=== PATIENT | male | born 1960 | race Caucasian/White ===

== ENCOUNTER 2018-05-07 17:18 | Inpatient (IN) | payer OTHER ==
[2018-05-07] MEDS ORDERED: NS 0.9% 1000 ML* 3,000 ML IV ONE (17:44)
[2018-05-07] MEDS ORDERED: Morphine VIAL* 4 MG/ML VIAL (1 ml vial) IV ONE (17:46)
--- NOTE | 2018-05-07 17:46 | ED ---
Abdominal Pain/Male - HPI Summary HPI Summary: Patient is a 58 y/o M w/ c/o right sided abdominal pain for the past few days. On triage, it is noted that patient also reported SOB. PMHx of diabetes, HTN. Patient is on insulin but has not been taking it for the past few weeks and has only been drinking juice. 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 He denies N/V/D and chest pain. He endorses decreased appetite. On triage, pain is rated 3/10. Nothing is noted to aggravate/alleviate Sx. Home medications and allergies are reviewed. - History of Current Complaint Chief Complaint: EDAbdPain Stated Complaint: ABD PAIN Time Seen by Provider: 05/07/18 17:37 Hx Obtained From: Patient Onset/Duration: Lasting Days, Still Present Timing: Constant, Lasting Days Severity Currently: Mild - 3/10 Pain Intensity: 3 Pain Scale Used: 0-10 Numeric - 3/10 Location: Other - right side abdominal pain Aggravating Factor(s): Nothing Alleviating Factor(s): Nothing Associated Signs And Symptoms: Positive: Decreased Appetite, Other - POSITIVE - SOB. Negative: Chest Pain, Nausea, Vomiting, Diarrhea - Allergies/Home Medications Allergies/Adverse Reactions: Allergies Allergy/AdvReac Type Severity Reaction Status Date / Time No Known Allergies Allergy Verified 05/07/18 18:02 Home Medications: Home Medications Basaglar Kwikpen U-100 10 units SUBCUT DAILY 05/08/18 [History Confirmed ] Furosemide TAB* [Lasix TAB*] 20 mg PO DAILY 05/08/18 [History Confirmed 05/08/18 ] Levothyroxine TAB* [Synthroid TAB*] 125 mcg PO DAILY 05/08/18 [History Confirmed 05/08/18] Sitagliptin Phosphate [Januvia] 100 mg PO DAILY 05/08/18 [History Confirmed ] glipiZIDE TAB* [Glucotrol TAB*] 10 mg PO DAILY 05/08/18 [History Confirmed 05/08] metFORMIN* [Glucophage 1000 MG TAB *] 1,000 mg PO BID 05/08/18 [History Confirmed 05/08/18] PMH/Surg Hx/FS Hx/Imm Hx Endocrine/Hematology History: Reports: Hx Diabetes Cardiovascular History: Reports: Hx Hypertension Sensory History: Denies: Hx Legally Blind, Hx Deafness Opthamlomology History: Denies: Hx Legally Blind EENT History: Denies: Hx Deafness Infectious Disease History: No Infectious Disease History: Denies: Traveled Outside the [place] in Last 30 Days - Family History Known Family History: Negative: Blood Disorder Review of Systems Negative: Chest Pain Positive: Shortness Of Breath Positive: Abdominal Pain, Other - POSITIVE - DECREASED APPETITE . Negative: Vomiting, Diarrhea, Nausea All Other Systems Reviewed And Are Negative: Yes Physical Exam - Summary Physical Exam Summary: Appearance: Well-appearing, Well-nourished, lying in bed comfortably Skin: Warm, dry, no obvious rash Eyes: sclera anicteric, no conjunctival pallor ENT: mucous membranes dry, pharynx appears normal Neck: Supple, nontender Respiratory: Clear to auscultation, patient is tachypneic Cardiovascular: Normal S1, S2. No murmurs. Normal distal pulses in tibial and radial bilaterally. Abdomen: Soft, RUQ tenderness with rebound and guarding, normal active bowel sounds present Musculoskeletal: Normal, Strength/ROM Intact Neurological: A&Ox3, awake and alert, mentation is normal, speech is fluent and appropriate Psychiatric: affect is normal, does not appear anxious or depressed Triage Information Reviewed: Yes Vital Signs On Initial Exam: Initial Vitals Temp Pulse Resp BP Pulse Ox 98.3 F 128 22 146/95 95 05/07/18 17:20 05/07/18 17:20 05/07/18 17:20 05/07/18 17:20 05/07/18 17:20 Vital Signs Reviewed: Yes Diagnostics - Vital Signs Vital Signs Temp Pulse Resp BP Pulse Ox 05/07/18 17:20 98.3 F 128 22 146/95 95 - Laboratory Result Diagrams: 05/08/18 06:48 05/08/18 06:48 Lab Statement: Any lab studies that have been ordered have been reviewed, and results considered in the medical decision making process. - Radiology CXR Radiology Interpretation Completed By: ED Physician - NO ACUTE DISEASE. PENDING OFFICIAL REPORT. - Ultrasound No standard instances Ultrasound Interpretation Completed By: Radiologist - GALLBLADDER US: 1. The gallbladder is thick walled measuring approximately 4.5 mm. There is a positive sonographic Conner's sign. There is pericholecystic fluid. Findings may be seen with infectious or inflammatory process. Recommend clinical correlation. There are no gallstones or sludge noted within the gallbladder. 2. There is a large cyst noted within the right kidney measuring approximately 11.9 x 11.0 x 8.3 CM. 3. There is fatty infiltration of an enlarged liver measuring 25 CM. ED PHYSICIAN REVIEWED THIS RADIOLOGY REPORT. - EKG 1723 Cardiac Rate: Tachycardia - 127 BPM EKG Rhythm: Sinus Rhythm - 127 BPM Summary of EKG Findings: negative STEMI Abdominal Pain Fem Course/Dx - Course Course Of Treatment: Patient is a 58 y/o M w/ c/o right sided abdominal pain for the past few days. On triage, it is noted that patient also reported SOB. PMHx of diabetes, HTN. Patient is on insulin but has not been taking it for the past few weeks and has only been drinking juice. 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 He denies N/V/ D and chest pain. He endorses decreased appetite. On physical exam, patient is noted to have dry mucous membranes, tachypneic, and RUQ tenderness with rebound and guarding. A CXR revealed to be no acute disease. A US gallbladder revealed 1. The gallbladder is thick walled measuring approximately 4.5 mm. There is a positive sonographic Conner's sign. There is pericholecystic fluid. Findings may be seen with infectious or inflammatory process. Recommend clinical correlation. There are no gallstones or sludge noted within the gallbladder. 2. There is a large cyst noted within the right kidney measuring approximately 11.9 x 11.0 x 8.3 CM. 3. There is fatty infiltration of an enlarged liver measuring 25 CM. An EKG revealed sinus tachycardia at 127 BPM, negative STEMI. blood work and urinalysis was done. In the ED course, the patient recieved Tylenol, Maalox, Ventolin, Dextrose, Colace, Heparin, Lantus, Humalog, Dulera, Morphine, Zofran, Zosyn, Senokot, Humalog, Lantus, and IV fluids. Patient care was discussed with hospitalist, Dr. Valdes, who accepts patient for admission. Patient will be admitted with a diagnosis of cholecystitis. Patient is agreeable with this plan. - Diagnoses Provider Diagnoses: Cholecystitis - Provider Notifications Discussed Care Of Patient With: Sánchez Ward Time Discussed With Above Provider: 22:57 Instructed by Provider To: Other - Will consult with patient. Recommends admission via hospitalist. [facility] - Accepts patient for admission. Discharge - Sign-Out/Discharge Documenting (check all that apply): Patient Departure - ADMIT, Sign-Out Patient - ROOTH Signing out patient TO: Armando Moser Receiving patient FROM: Luis Childers - Discharge Plan Condition: Stable Disposition: ADMITTED TO [facility] - Billing Disposition and Condition Condition: STABLE Disposition: Admitted to [facility] - Attestation Statements Document Initiated by Ankur: Yes Documenting Scribe: Alex Montgomery Provider For Whom Ankur is Documenting (Include Credential): Armando Moser M.D. Scribyanet Attestation: John Crowe Tariq Hussain, scribed for Armando Moser M.D. on 05/08/18 at 2010. Scribe Documentation Reviewed: Yes Provider Attestation: The documentation as recorded by the John koo Tariq Hussain accurately reflects the service I personally performed and the decisions made by Armando bird M.D. Status of Ankur Document: Viewed
[2018-05-07 19:08] LABS: Hematocrit 47 % (42-52); Hemoglobin 16.5 g/dl (14.0-18.0); Mean Corpuscular HGB Conc 35 g/dl (31-36); Mean Corpuscular Hemoglobin 32 pg (27-31); Mean Corpuscular Volume 90 fL (80-94); Mean Platelet Volume 8.4 fL (7.4-10.4); Platelet Count 211 10^3/ul (150-450); Red Blood Count 5.25 10^6/ul (4.00-5.40); Red Cell Distribution Width 13 % (10.5-15); White Blood Count 21.4 10^3/ul (3.5-10.8)
[2018-05-07 19:11] LABS: Urine Appearance Clear; Urine Blood 1+ (Negative); Urine Color Yellow; Urine Ketones Trace (Negative); Urine Protein 1+(30 mg/dL) (Negative); Urine Red Blood Cell Trace(0-2/hpf) (Absent); Urine Urobilinogen Negative (Negative); Urine White Blood Cell Absent (Absent)
[2018-05-07 19:25] LABS: EGFR Non-African American 101.9 (>60)
[2018-05-07 19:31] LABS: ABS Basophils 0.1 10^3/ul (0-0.2); ABS Eosinophils 0 10^3/ul (0-0.6); ABS Lymphocytes 1.1 10^3/ul (1.0-4.8); ABS Monocytes 1.8 10^3/ul (0-0.8); ABS Neutrophils 18.4 10^3/ul (1.5-7.7); ABS Nucleated RBC 0 10^3/ul; Eosinophil % 0.1 %; Lymphocyte % 5.2 %; Nucleated Red Blood Cells % 0.1
[2018-05-07] MEDS ORDERED: Piperacillin/Tazobac ADVAN(*) 3.375 GM in NS 0.9% 100 ML* 100 ML IVPB ONE (22:48)
[2018-05-07] MEDS ORDERED: NS 0.9% 1000 ML* 2,000 ML IV ONE (22:48)
[2018-05-07] MEDS ORDERED: Docusate CAP* 100 MG PO PRN (23:31)
[2018-05-07] MEDS ORDERED: Insulin LISPRO* 1 UNITS UNIT SUBCUT ONE (23:31)
[2018-05-07] MEDS ORDERED: Morphine VIAL* 4 MG/ML VIAL (1 ml vial) IV PRN (23:31)
[2018-05-07] MEDS ORDERED: Ondansetron INJ* 2 MG/ML VIAL IV PRN (23:31)
[2018-05-07] MEDS ORDERED: Dextrose 50% Syringe 50 ML* 25 GM/50 ML SYRINGE IV PUSH PRN ×3 (23:31→23:35)
[2018-05-07] MEDS ORDERED: Senna TAB PO PRN (23:31)
[2018-05-07] MEDS ORDERED: Al Hydrox/Mg Hydrox/Simet LIQ* 30 ML UDC PO PRN (23:31)
[2018-05-07] MEDS ORDERED: Insulin GLARGINE(*) 1 UNITS UNIT SUBCUT ONE (23:34)
[2018-05-07] MEDS ORDERED: Albuterol HFA INHALER* 8 gm MDI INH PRN (23:36)
[2018-05-07] MEDS ORDERED: Zosyn per Pharmacy* NOTE FOLLOW UP SCH (23:45)
[2018-05-08] MEDS: NS 0.9% 1000 ML* 1,000 ML IV SCH (01:35)
[2018-05-08] MEDS: ZOSYN 3.375 GM Q8H per EXTENDED INFUSION IVPB SCH ×6 (02:35→21:21)
[2018-05-08] MEDS: Heparin VIAL(*) 5000 UNITS/ML VIAL (FIVE THOUSAND) SUBCUT SCH ×2 (04:54→15:01)
[2018-05-08] MEDS: Mometasone/Formoter 200/5 MDI INH SCH ×3 (05:40→20:13)
[2018-05-08 07:24] LABS: ABS Basophils 0.1 10^3/ul (0-0.2); ABS Eosinophils 0.1 10^3/ul (0-0.6); ABS Lymphocytes 1.2 10^3/ul (1.0-4.8); ABS Monocytes 1.2 10^3/ul (0-0.8); ABS Neutrophils 14.2 10^3/ul (1.5-7.7); ABS Nucleated RBC 0 10^3/ul; Eosinophil % 0.6 %; Hematocrit 41 % (42-52); Hemoglobin 14.3 g/dl (14.0-18.0); Mean Corpuscular HGB Conc 35 g/dl (31-36); Mean Corpuscular Hemoglobin 32 pg (27-31); Mean Corpuscular Volume 91 fL (80-94); Mean Platelet Volume 8.3 fL (7.4-10.4); Nucleated Red Blood Cells % 0; Platelet Count 206 10^3/ul (150-450); Red Blood Count 4.53 10^6/ul (4.00-5.40); Red Cell Distribution Width 14 % (10.5-15); White Blood Count 16.8 10^3/ul (3.5-10.8)
[2018-05-08 07:41] LABS: EGFR Non-African American 121.4 (>60)
[2018-05-08] MEDS: Insulin LISPRO* 1 UNITS UNIT SUBCUT SCH ×6 (08:25→17:41)
--- NOTE | 2018-05-08 08:37 | HP ---
CC: Aurea Ricketts MD HISTORY AND PHYSICAL: DATE OF ADMISSION: 05/07/18 TIME OF EVALUATION: 2300. PRIMARY CARE PHYSICIAN: Aurea Ricketts MD CHIEF COMPLAINT: Abdominal pain. HISTORY OF PRESENT ILLNESS: This is a 58-year-old male with past medical history of diabetes, who pr esents to the emergency room with 2 days of right-sided abdominal pain. He denied any nausea or vomi ting. He states he has not been able to eat or drink anything over the past 24 hours. No diarrhea, no constipation. He is also complaining of shortness of breath. He has a chronic cough from his [employer], is not any worse. He denies any chest pain. No changes in weight, no lower extremity swelling. According to the ER, they stated he stopped using his insulin, he does not know why. When he spoke w arnold me, he states he has been compliant with his insulin. In the emergency room, the patient had lab s and imaging, he was found to have findings consistent with acute cholecystitis. Dr. Ward was co ntacted. He recommended the hospitalist to evaluate the patient and he would consult. PAST MEDICAL HISTORY: 1. Diabetes. 2. Hypertension. 3. COPD. MEDICATIONS: We will need to get med rec, the patient is not sure. He states he takes 2 inhalers. He states he takes insulin 20 mg subcu b.i.d. Otherwise, remaining medications are unknown. ALLERGIES: No known drug allergies. FAMILY HISTORY: Reviewed and noncontributory. SOCIAL HISTORY: The patient states he lives in a boarding house with 2 other housemaids. His girlfr iend, Amaris Gallagher, is his healthcare proxy. He denies any alcohol, tobacco, or illicit drug use. Kerri holt works at a [employer]. Code status is full code. REVIEW OF SYSTEMS: A 14-point review of systems as mentioned in the HPI; otherwise, negative. PHYSICAL EXAMINATION GENERAL: No acute distress, mildly ill appearing, resting comfortably. VITAL SIGNS: Temp 98.3, pulse rate 111, respiratory rate 18, oxygen saturation 95% on 3 L, blood pre ssure 114/78. HEENT: Head normocephalic. Pupils are equal and reactive. His right eye is injected. Conjunctivae are injected. Oropharynx: Mucous membranes dry. NECK: Supple. No lymphadenopathy. RESPIRATORY: Diminished breath sounds. Prolonged inspiratory phase. No wheezes, rhonchi, or rales. No increased work of breathing. CARDIAC: Tachycardic. Soft systolic murmur heard throughout. ABDOMEN: Positive bowel sounds. Tenderness in the right upper quadrant with some guarding. Abdomen is soft. EXTREMITIES: Trace pretibial edema. NEUROLOGIC: Alert and oriented x3. No gross focal neurologic deficits. DIAGNOSTIC STUDIES/LAB DATA: White count 21.4, hemoglobin , hematocrit 47, platelets 211. Sod ium 131, potassium 3.7, chloride 101, bicarb 23, BUN 11, creatinine 0.78, glucose 356. Total bili is 3. UA shows trace ketones, squamous cells present, +3 glucose. Radiographic Data: The gallbladder is thick walled, measuring approximately 4.5 mm. There is positi ve sonographic Conner' sign. There is pericholecystic fluid. Findings may be seen with infectious or inflammatory process. Recommend clinical correlation. There are no gallstones or sludge noted with in the gallbladder. There is a large cyst noted within the right kidney measuring approximately 11 x 9 x 11 x 8.3 cm. There is fatty infiltration of an enlarged liver measuring 25 cm. EKG shows sinus tachycardia. ASSESSMENT AND PLAN: This is a 58-year-old male with past medical history of diabetes, who presents to the emergency room with 2 days of right upper quadrant pain. 1. Right upper quadrant pain. Assessment: The patient's findings are consistent with acute cholecy stitis. Dr. Ward was contacted, he recommended hospitalist admission. Plan: We will check a [place]. We will continue him on aggressive IV fluids and continue him on Zosyn. We will obtain blood cultures as well and follow up with Dr. Ward. We will keep him n.p.o. 2. Shortness of breath. Assessment: Most likely related to his sepsis and possibility of his chron ic obstructive pulmonary disease. Plan: We will check a chest x-ray. We will start him on albutero l and Dulera for now until we get his med rec. If his shortness of breath continues, recommend furth er workup. 3. Diabetes. Assessment: The patient is hyperglycemic, but no anion gap acidosis. Plan: We will give him lispro this evening, start him on Lantus and follow up on the med rec, continue IV fluids, p lace him on lispro sliding scale, and check a hemoglobin A1c. 4. Chronic obstructive pulmonary disease. As mentioned, inhalers and follow up what he takes at [facility]. CHRONIC MEDICAL PROBLEMS: 1. We will need to get a med rec and order his medications accordingly. 2. Abnormal imaging findings. The patient with a large renal cyst noted, this will need to be follo wed as an outpatient. 3. FEN. N.p.o. IV fluids. 4. DVT prophylaxis. The patient scores moderate risk. Place him on heparin subcu t.i.d. 5. Code status. Full code. PATIENT TIME: Greater than 50 minutes was spent doing the history and physical, more than half the t kushal spent in direct patient contact. [id number]/[facility] #: [id number]
--- NOTE | 2018-05-08 12:58 | PN ---
Subjective Date of Service: 05/08/18 Interval History: Mr. Pinzon is anxious to meet with the surgeon. His is in the room as well. He continues to have pain in the RUQ. No nausea. He has been NPO. Afebrile. No other symptoms. He is actually looking forward to eating post- op. Objective Active Medications: Acetaminophen (Tylenol Tab*) 650 mg PO Q4H PRN PRN Reason: FEVER/PAIN Al Hydrox/Mg Hydrox/Simethicone (Maalox Plus*) 30 ml PO Q6H PRN PRN Reason: INDIGESTION Albuterol (Ventolin Hfa Inhaler*) 2 puff INH Q4H PRN PRN Reason: SOB/WHEEZING Dextrose (D50w Syringe 50 Ml*) 12.5 gm IV PUSH .FOR FS < 60 - SS PRN PRN Reason: FS < 60 Docusate Sodium (Colace Cap*) 100 mg PO BID PRN PRN Reason: CONSTIPATION Heparin Sodium (Porcine) (Heparin Vial(*)) 5,000 units SUBCUT Q8HR [facility] Last Admin: 05/08/18 04:54 Dose: Not Given Sodium Chloride (Ns 0.9% 1000 Ml*) 1,000 mls @ 125 mls/hr IV PER RATE [facility] Last Admin: 05/08/18 01:35 Dose: 125 mls/hr Piperacillin Sod/Tazobactam (Sod 3.375 gm/ Sodium Chloride) 100 mls @ 25 mls/ hr IVPB Q8H [facility] Last Admin: 05/08/18 11:05 Dose: 25 mls/hr Insulin Glargine (Lantus(*)) 20 units SUBCUT Q24H [facility] Insulin Human Lispro (Humalog*) 0 units SUBCUT AC [facility]; Protocol Last Admin: 05/08/18 12:23 Dose: Not Given Insulin Human Lispro (Humalog*) 0 units SUBCUT AC [facility]; Protocol Last Admin: 05/08/18 12:40 Dose: 6 units Mometasone Furoate/Formoterol Fumar (Dulera 200/5 Mdi*) 2 puff INH BID [facility] Last Admin: 05/08/18 07:54 Dose: 2 puff Morphine Sulfate (Morphine Vial*) 2 mg IV Q4H PRN PRN Reason: PAIN - MILD Last Admin: 05/08/18 01:35 Dose: 2 mg Ondansetron HCl (Zofran Inj*) 4 mg IV Q4H PRN PRN Reason: NAUSEA/VOMITING Pharmacy Consult (Zosyn Per Pharmacy*) 1 note FOLLOW UP .ZOSYN PER PHARMACY FAM Senevita (Senokot Tab*) 1 tab PO BID PRN PRN Reason: CONSTIPATION Vital Signs - 8 hr 05/08/18 05/08/18 05/08/18 07:22 08:00 11:51 Temperature 97.9 F 98.2 F Pulse Rate 93 96 Respiratory 22 22 20 Rate Blood Pressure 127/79 130/80 (mmHg) O2 Sat by Pulse 96 93 Oximetry Oxygen Devices in Use Now: None Appearance: alert, nontoxic, resting in bed Eyes: No Scleral Icterus Ears/Nose/Mouth/Throat: NL Teeth, Lips, Gums Neck: NL Appearance and Movements; NL JVP Respiratory: Symmetrical Chest Expansion and Respiratory Effort, Clear to Auscultation Cardiovascular: NL Sounds; No Murmurs; No JVD, RRR Abdominal: - - +magallon's sign. nontender elsewhere. Lymphatic: No Cervical Adenopathy Extremities: No Edema Skin: No Rash or Ulcers Neurological: Alert and Oriented x 3 Result Diagrams: 05/08/18 06:48 05/08/18 06:48 Assess/Plan/Problems-Billing Assessment: This is a 58 year old man with history of diabetes who presented with RUQ pain and was found to have acute cholecystitis. - Patient Problems (1) Acute cholecystitis Current Visit: Yes Status: Acute Code(s): K81.0 - ACUTE CHOLECYSTITIS SNOMED Code(s): 43826193 Comment: currently on pip/tazo, but needs cholecystectomy case discussed with surgery, who will evaluate him shivani currently hemodynamically stable and euvolemic (2) Diabetes mellitus Current Visit: Yes Status: Acute Code(s): E11.9 - TYPE 2 DIABETES MELLITUS WITHOUT COMPLICATIONS SNOMED Code(s): 58463026 Comment: poorly controlled; he and his admit he takes his insulin inconsistently (3) HTN (hypertension) Current Visit: Yes Status: Acute Code(s): I10 - ESSENTIAL (PRIMARY) HYPERTENSION SNOMED Code(s): 86388403 Comment: he also admits he takes his antihypertensives sporadically
--- NOTE | 2018-05-08 15:05 | CONSULT ---
Consult Consult: CC: RUQ abd pain HPI: Mr. Pinzon is an obese, 58 yo M with HTN, DM, and COPD who developed RUQ abd pain 2 days ago at 6 am. He felt well the night before and slept fine. He has no prior h/o similar pain. He denies N/V but did not feel he could eat and so was only drinking for a day. He denies F/C, jaundice, tea-colored urine or change in stools. He called in sick to work due to the pain and as it continued to worsen he presented to [place] [facility] [place]. In the ED he was noted to have WBC=21.4 and glucose= 356. He reports he hadn't taken diabetes medication for 2 weeks. Upon evaluation by ED staff he was noted to have tenderness in the RUQ and an US demonstrated findings of GB wall thickening and pericholecystic fluid with gallstones and positive sonographic Conner sign. Given the poorly controlled diabetes, he has been admitted to the Hospitalist service and is now under better control. He continues to c/o pain. He has been NPO. PMH: HTN, DM, COPD, obesity PSH: denies Meds: Active Medications Generic Name Dose Route Start Last Admin Trade Name Freq PRN Reason Stop Dose Admin Acetaminophen 650 mg 05/07/18 23:31 Tylenol Tab* PO Q4H PRN FEVER/PAIN Al Hydrox/Mg Hydrox/Simethicone 30 ml 05/07/18 23:31 Maalox Plus* PO Q6H PRN INDIGESTION Albuterol 2 puff 05/07/18 23:36 Ventolin Hfa Inhaler* INH Q4H PRN SOB/WHEEZING Dextrose 12.5 gm 05/07/18 23:31 D50w Syringe 50 Ml* IV PUSH .FOR FS < 60 - SS PRN FS < 60 Docusate Sodium 100 mg 05/07/18 23:31 Colace Cap* PO BID PRN CONSTIPATION Heparin Sodium (Porcine) 5,000 units 05/08/18 06:00 05/08/18 04:54 Heparin Vial(*) SUBCUT Not Given Q8HR FAM Sodium Chloride 1,000 mls @ 125 mls/hr 05/07/18 23:45 05/08/18 01:35 Ns 0.9% 1000 Ml* IV 125 mls/hr PER RATE FAM Administration Piperacillin Sod/Tazobactam 100 mls @ 25 mls/hr 05/08/18 03:00 05/08/18 11:05 Sod 3.375 gm/ Sodium Chloride IVPB 25 mls/hr Q8H FAM Administration Insulin Glargine 20 units 05/08/18 21:00 Lantus(*) SUBCUT Q24H FAM Insulin Human Lispro 0 units 05/08/18 07:30 05/08/18 12:23 Humalog* SUBCUT Not Given AC PENDING SALE TO [facility] Protocol Insulin Human Lispro 0 units 05/08/18 07:30 05/08/18 12:40 Humalog* SUBCUT 6 units AC PENDING S[facility] TO [facility] Administration Protocol Mometasone Furoate/Formoterol Fumar 2 puff 05/07/18 23:45 05/08/18 07:54 Dulera 200/5 Mdi* INH 2 puff BID FAM Administration Morphine Sulfate 2 mg 05/07/18 23:31 05/08/18 01:35 Morphine Vial* IV 2 mg Q4H PRN Administration PAIN - MILD Ondansetron HCl 4 mg 05/07/18 23:31 Zofran Inj* IV Q4H PRN NAUSEA/VOMITING Pharmacy Consult 1 note 05/07/18 23:45 Zosyn Per Pharmacy* FOLLOW UP .ZOSYN PER PHARMACY FAM Senna 1 tab 05/07/18 23:31 Senokot Tab* PO BID PRN CONSTIPATION NKDA SH: single; no tobacco or EtOH reported; 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 FH: non-contributory PE: Vital Signs Temp 98.2 F 05/08/18 11:51 Pulse 96 05/08/18 11:51 Resp 20 05/08/18 11:51 BP 130/80 05/08/18 11:51 Pulse Ox 93 05/08/18 11:51 Gen: Obese, lying in bed, awake/alert. HEENT: NCAT; edentulous; no otorhinorrhea; anicteric sclera. Lungs: CTA B Heart: reg s1s2 Abd: obese, no scars; soft with RUQ tenderness and +Conner sx. Ext: warm, well perfused. Intake & Output 05/07/18 05/08/18 05/08/18 18:59 06:59 18:59 Intake Total 5645 0 Balance 5645 0 Weight 300 lb 272 lb 1.6 oz Intake: IV Fluids 5558 NS (0.9%) 558 IVPB 87 ABX - ZOSYN 87 Oral 0 0 Other: Estimated Void Large # Bowel Movements 0 # Voids 1 Laboratory Results - last 24 hr 05/07/18 05/07/18 05/07/18 18:40 18:51 18:51 WBC 21.4 H RBC 5.25 Hgb 16.5 Hct 47 MCV 90 MCH 32 H MCHC 35 RDW 13 Plt Count 211 MPV 8.4 Neut % (Auto) 86.0 Lymph % (Auto) 5.2 Schleicher % (Auto) 8.3 Eos % (Auto) 0.1 Baso % (Auto) 0.4 Absolute Neuts (auto) 18.4 H Absolute Lymphs (auto) 1.1 Absolute Monos (auto) 1.8 H Absolute Eos (auto) 0 Absolute Basos (auto) 0.1 Absolute Nucleated RBC 0 Nucleated RBC % 0.1 Sodium 131 L Potassium 3.7 Chloride 101 Carbon Dioxide 23 Anion Gap 7 BUN 11 Creatinine 0.78 Est GFR ( Amer) 123.3 Est GFR (Non-Af Amer) 101.9 BUN/Creatinine Ratio 14.1 Glucose 356 H POC Glucose (mg/dL) Glucose Meter Confirm Hemoglobin A1c Lactic Acid Calcium 9.0 Total Bilirubin 3.00 H Direct Bilirubin 0.60 H AST 17 ALT 24 Alkaline Phosphatase 62 Troponin I 0.01 Total Protein 6.8 Albumin 3.7 Globulin 3.1 Albumin/Globulin Ratio 1.2 Lipase 19 Urine Color Yellow Urine Appearance Clear Urine pH 5.0 Ur Specific [place] 1.030 Urine Protein 1+(30 mg/dl) A Urine Ketones Trace A Urine Blood 1+ A Urine Nitrate Negative Urine Bilirubin Negative Urine Urobilinogen Negative Ur Leukocyte Esterase Negative Urine WBC (Auto) Absent Urine RBC (Auto) Trace(0-2/hpf) Ur Squamous Epith Cells Present A Urine Bacteria Absent Urine Glucose 3+(>=500 mg/dl) A 05/07/18 05/07/18 05/07/18 18:51 20:13 22:52 WBC RBC Hgb Hct MCV MCH MCHC RDW Plt Count MPV Neut % (Auto) Lymph % (Auto) Schleicher % (Auto) Eos % (Auto) Baso % (Auto) Absolute Neuts (auto) Absolute Lymphs (auto) Absolute Monos (auto) Absolute Eos (auto) Absolute Basos (auto) Absolute Nucleated RBC Nucleated RBC % Sodium Potassium Chloride Carbon Dioxide Anion Gap BUN Creatinine Est GFR ( Amer) Est GFR (Non-Af Amer) BUN/Creatinine Ratio Glucose POC Glucose (mg/dL) 329 H > 444 H* Glucose Meter Confirm Hemoglobin A1c 11.8 H Lactic Acid Calcium Total Bilirubin Direct Bilirubin AST ALT Alkaline Phosphatase Troponin I Total Protein Albumin Globulin Albumin/Globulin Ratio Lipase Urine Color Urine Appearance Urine pH Ur Specific [place] Urine Protein Urine Ketones Urine Blood Urine Nitrate Urine Bilirubin Urine Urobilinogen Ur Leukocyte Esterase Urine WBC (Auto) Urine RBC (Auto) Ur Squamous Epith Cells Urine Bacteria Urine Glucose 05/07/18 05/07/18 05/08/18 23:24 23:48 06:48 WBC 16.8 H RBC 4.53 Hgb 14.3 Hct 41 L MCV 91 MCH 32 H MCHC 35 RDW 14 Plt Count 206 MPV 8.3 Neut % (Auto) 84.6 Lymph % (Auto) 7.0 Schleicher % (Auto) 7.2 Eos % (Auto) 0.6 Baso % (Auto) 0.6 Absolute Neuts (auto) 14.2 H Absolute Lymphs (auto) 1.2 Absolute Monos (auto) 1.2 H Absolute Eos (auto) 0.1 Absolute Basos (auto) 0.1 Absolute Nucleated RBC 0 Nucleated RBC % 0 Sodium Potassium Chloride Carbon Dioxide Anion Gap BUN Creatinine Est GFR ( Amer) Est GFR (Non-Af Amer) BUN/Creatinine Ratio Glucose POC Glucose (mg/dL) Glucose Meter Confirm 306 H Hemoglobin A1c Lactic Acid 0.8 Calcium Total Bilirubin Direct Bilirubin AST ALT Alkaline Phosphatase Troponin I Total Protein Albumin Globulin Albumin/Globulin Ratio Lipase Urine Color Urine Appearance Urine pH Ur Specific [place] Urine Protein Urine Ketones Urine Blood Urine Nitrate Urine Bilirubin Urine Urobilinogen Ur Leukocyte Esterase Urine WBC (Auto) Urine RBC (Auto) Ur Squamous Epith Cells Urine Bacteria Urine Glucose 05/08/18 05/08/18 05/08/18 06:48 08:06 11:42 WBC RBC Hgb Hct MCV MCH MCHC RDW Plt Count MPV Neut % (Auto) Lymph % (Auto) Schleicher % (Auto) Eos % (Auto) Baso % (Auto) Absolute Neuts (auto) Absolute Lymphs (auto) Absolute Monos (auto) Absolute Eos (auto) Absolute Basos (auto) Absolute Nucleated RBC Nucleated RBC % Sodium 135 Potassium 3.7 Chloride 107 Carbon Dioxide 22 Anion Gap 6 BUN 9 Creatinine 0.67 Est GFR ( Amer) 146.9 Est GFR (Non-Af Amer) 121.4 BUN/Creatinine Ratio 13.4 Glucose 252 H POC Glucose (mg/dL) 101 H 222 H Glucose Meter Confirm Hemoglobin A1c Lactic Acid Calcium 8.4 L Total Bilirubin 2.20 H Direct Bilirubin 0.60 H AST 14 ALT 20 Alkaline Phosphatase 61 Troponin I Total Protein 6.2 L Albumin 3.1 L Globulin 3.1 Albumin/Globulin Ratio 1.0 Lipase Urine Color Urine Appearance Urine pH Ur Specific [place] Urine Protein Urine Ketones Urine Blood Urine Nitrate Urine Bilirubin Urine Urobilinogen Ur Leukocyte Esterase Urine WBC (Auto) Urine RBC (Auto) Ur Squamous Epith Cells Urine Bacteria Urine Glucose US images reviewed. Findings as above and fatty liver. CBD 2mm. ECG: sinus tach CXR:NAD A/P: 58 yo M with h/o obesity, HTN, COPD, DM now found to have acute cholecystitis. He is somewhat improved with IV antibiotics but has tachycardia , concerning for ongoing sepsis. Cholecystectomy is recommended due to his poorly controlled diabetes. I discussed the recommendation with the patient. He is agreeable to surgery. Keep NPO and continue IV abx/IVF. Will arrange for laparoscopic cholecystectomy this admission.
[2018-05-08] MEDS ORDERED: Insulin GLARGINE(*) 1 UNITS UNIT SUBCUT SCH (21:00)
[2018-05-08] MEDS ORDERED: Bupivacaine 0.25% EPI 200,000* 30 ML SDV ONE (21:27)
[2018-05-08] MEDS ORDERED: Levalbuterol 0.63MG/3ML NEB* UNIT OF USE INH ONE (21:32)
[2018-05-08] MEDS ORDERED: fentaNYL* 50 MCG/ML 2 ML VIAL (100 MCG VIAL) ONE (21:45)
[2018-05-08] MEDS ORDERED: Midazolam* 1 MG/ML 2 ML VIAL (2 MG) ONE (21:45)
[2018-05-08] MEDS ORDERED: Sevoflurane* 1 BTL ONE (22:21)
[2018-05-08] MEDS ORDERED: Cisatracurium* 2 MG/ML MDV 5 ML ONE (22:21)
[2018-05-08] MEDS ORDERED: Lidocaine 2% PF * 5 ML VIAL ONE (22:23)
[2018-05-08] MEDS ORDERED: Succinylcholine* 20 MG/ML 10 ML VIAL ONE (22:24)
[2018-05-08] MEDS ORDERED: Propofol* 10 MG/ML 20 ML BTL ONE (22:24)
[2018-05-08] MEDS ORDERED: Ondansetron INJ* 2 MG/ML VIAL ONE (22:26)
--- NOTE | 2018-05-09 00:32 | BRIEFOPN ---
Brief Operative Note - Surgery Procedures: Pre-OP Diagnoses: acute cholecystitis Post-op Diagnosis: gangrenous cholecystitis Procedure: Laparoscopic cholecystectomy Surgeon: Rodriguez Asst: none Anesthesia: GETA EBL: 600cc IVF: 1600cc Specimen: gallbladder Drains: #10 Sonny
[2018-05-09] MEDS ORDERED: Naloxone* 0.4 MG/ML 1 ML VIAL IV PRN (00:47)
[2018-05-09] MEDS ORDERED: fentaNYL* 50 MCG/ML 2 ML VIAL (100 MCG VIAL) IV PRN (00:47)
[2018-05-09] MEDS ORDERED: HYDROmorphone INJ1* 1 MG/ML SYRINGE IV PRN (00:47)
[2018-05-09] MEDS ORDERED: Insulin LISPRO* 1 UNITS UNIT SUBCUT ONE (01:11)
[2018-05-09] MEDS: NS 0.9% 1000 ML* 1,000 ML IV SCH ×3 (03:13→19:01)
[2018-05-09] MEDS: ZOSYN 3.375 GM Q8H per EXTENDED INFUSION IVPB SCH ×6 (03:41→19:03)
[2018-05-09] MEDS: Heparin VIAL(*) 5000 UNITS/ML VIAL (FIVE THOUSAND) SUBCUT SCH ×2 (04:14→22:27)
[2018-05-09 06:18] LABS: Hematocrit 41 % (42-52); Hemoglobin 14.2 g/dl (14.0-18.0); Mean Corpuscular HGB Conc 35 g/dl (31-36); Mean Corpuscular Hemoglobin 32 pg (27-31); Mean Corpuscular Volume 91 fL (80-94); Mean Platelet Volume 8.1 fL (7.4-10.4); Platelet Count 222 10^3/ul (150-450); Red Blood Count 4.52 10^6/ul (4.00-5.40); Red Cell Distribution Width 13 % (10.5-15); White Blood Count 12.1 10^3/ul (3.5-10.8)
[2018-05-09 06:34] LABS: EGFR Non-African American 113.6 (>60)
[2018-05-09 06:54] LABS: ABS Neutrophils 11.74 10^3/ul (1.5-7.7)
[2018-05-09] MEDS: Mometasone/Formoter 200/5 MDI INH SCH ×2 (09:28→19:29)
[2018-05-09] MEDS: Insulin LISPRO* 1 UNITS UNIT SUBCUT SCH ×6 (09:29→18:19)
[2018-05-09 13:52] LABS: ABS Basophils 0 10^3/ul (0-0.2); ABS Eosinophils 0 10^3/ul (0-0.6); ABS Lymphocytes 0.8 10^3/ul (1.0-4.8); ABS Monocytes 0.9 10^3/ul (0-0.8); ABS Neutrophils 9.1 10^3/ul (1.5-7.7); ABS Nucleated RBC 0 10^3/ul; Eosinophil % 0.2 %; Hematocrit 40 % (42-52); Hemoglobin 14.1 g/dl (14.0-18.0); Lymphocyte % 7.5 %; Mean Corpuscular HGB Conc 35 g/dl (31-36); Mean Corpuscular Hemoglobin 32 pg (27-31); Mean Corpuscular Volume 91 fL (80-94); Mean Platelet Volume 8.2 fL (7.4-10.4); Nucleated Red Blood Cells % 0.1; Platelet Count 230 10^3/ul (150-450); Red Blood Count 4.43 10^6/ul (4.00-5.40); Red Cell Distribution Width 13 % (10.5-15); White Blood Count 10.8 10^3/ul (3.5-10.8)
[2018-05-09 14:05] LABS: EGFR Non-African American 106.6 (>60)
--- NOTE | 2018-05-09 14:22 | PN ---
Progress Note - Progress Note Date of Service: 05/09/18 SOAP: Subjective: Pt seen and examined. thirst, no appetite, some abdo pain We walked and pt dis have some difficulty with balance- he has a R ankle issue prior to admission incontinent to urine answers questiosn appropriately Objective: Temp Pulse Resp BP Pulse Ox 98 F 101 24 154/90 91 05/09/18 12:55 05/09/18 12:55 05/09/18 11:08 05/09/18 12:55 05/09/18 12:55 Intake & Output 05/08/18 05/09/18 05/09/18 22:59 06:59 14:59 Intake Total 1600 2181 Output Total 350 Balance 1600 1831 a and o x3 shallow breathing abdo: distended, tender w/o rebound JHONNY serous through drain and around ext wnl labs noted. TB and alkphos up Assessment: POD0 lap marisel for gangrenous marisel, tachypneic, Plan: continue abx ivf OOB incentive spirometry GI cvt proph
[2018-05-09] MEDS ORDERED: Famotidine IV * 20 MG in NS 0.9% 100 ML* 100 ML IVPB SCH (15:00)
--- NOTE | 2018-05-09 15:29 | OP ---
CC: Primary Care Doctor; [facility]; Dr. Ricketts OPERATIVE REPORT: DATE OF OPERATION: 05/09/18 DATE OF : 58 SURGEON: Clement Frias MD [employer] MACHINE OPERATOR: None. ANESTHESIOLOGIST: Dr. Antonio. ANESTHESIA: General anesthesia. PRE-OP DIAGNOSIS: Acute cholecystitis. POST-OP DIAGNOSIS: Gangrenous cholecystitis. OPERATIVE PROCEDURE: Laparoscopic cholecystectomy. ESTIMATED BLOOD LOSS: 600 cc. IV FLUIDS: 1600 cc of crystalloid fluid given. SPECIMEN: Gallbladder. DRAINS: A #10 JHONNY drain left at the Fu's pouch. INDICATIONS: The patient was seen in the preoperative area. I discussed the case with Dr. Ward and examined the patient and reviewed his chart. I agreed with diagnosis of acute cholecystitis and recommended laparoscopic cholecystectomy. I outlined the details of the procedure, going over the risks , benefits, and alternatives to the patient. We spoke about the possible complications, which included not limited to bleeding, infection, bile leak, common bile duct injury, retained common bile duct stones, bowel injury, need for open procedure or additional procedures. The patient signed consent. DESCRIPTION OF PROCEDURE: He was marked. He was taken to the operating room and placed on the operating table in the supine position. Preoperative antibiotics were given. Sequential devices were placed on bilateral lower extremities. General anesthesia was induced. The patient's abdomen was clipped of hair and prepped and draped in the standard surgical fashion. A time-out was performed. Folds of the umbilicus were elevated anteriorly and a Veress needle was inserted into the abdominal cavity, which was then allowed to insufflate to a pressure of 15 mmHg. The patient tolerated the insufflation well. A periumbilical incision was made. A 12-mm trocar was inserted. The laparoscope was inserted through this and there was no evidence of free fluid. The omentum was adhered to the upper portion of the gallbladder. We then placed additional trocars in the following position: A 12 mm in the subxiphoid area and two 5 mm along the right costal margin. We attempted to move the gallbladder and move the omentum off this attachment downward and as I placed the suction on the side of the fundus of the gallbladder, it avulsed right from its attachments to the liver. Bleeding was brisk and we applied a gauze in the site, applied pressure and then removed the gauze and applied Surgicel to this site. We then placed the gauze as well as Surgicel in the area between the gallbladder and the raw surface of the liver that was bleeding. We then identified the fundus of the gallbladder and bluntly dissected the omentum off this. This allowed us to grasp a gangrenous gallbladder and retracted above the liver. This both gave us visualization and also applied pressure to that posterior aspect that was bleeding. The blunt dissection carried on inferiorly sweeping down the omentum and the peel at this site until this was free and we could see more proximal portion of the gallbladder. The stomach was identified along with portion of the duodenum. We could not see common bile duct. Thickened peritoneum of the lateral aspect of the gallbladder was taken with electrocautery and of the medial aspect in a similar fashion. We clipped what we felt was cystic artery and we continued our dissection. We were able to get around the gallbladder at the mid portion and then continued our dissection superiorly going through a thick peel until we were through that posterior aspect where the gauze had set. I can only bring the gallbladder neck into view, not necessarily the cystic duct. This I felt was too difficult given the body habitus and significant inflammation. At this point, we took the fundus of the gallbladder and brought this downward and took it from the top down even though we had done almost all of the dissection by this point. With the gallbladder now completely dissected off the liver and off the peritoneal attachments laterally, we were able to identify this infundibular region and I made the decision to cut through the gallbladder at this site. We viewed into this mucosa. It showed no stone; however, it went into a deeper crevice and I was concerning for the possibility of the stone, but looked like a fragment and I irrigated and could not take this out and I felt may be this was a valve. At this point, I reconstituted this infundibular cystic region with 2-0 Vicryl stitch in a [id number] fashion. It should be noted that no bile was expressed from this stump. Once this was performed, the gallbladder was placed in endoscopic retrieval bag and placed over the liver. We then copiously irrigated until the effluent was clear. There was additional need for Surgicel at the site of the suture that was within the significant peel of the proximal gallbladder. The gauze was then all removed and accounted for. The raw surface of the liver was no longer oozing and no additional cautery was used at this site. Next, a #10 JHONNY drain was placed in the abdomen and brought out through the right lateral most port site. It was later sutured to the skin with 3-0 Prolene suture. We placed the patient back into neutral position, placed the omentum up at the site of the JHONNY drain under the dissection site and then took the gallbladder out through the subxiphoid port site after dilating this incision to allow for removal of the specimen. The abdomen was allowed to collapse. Trocars were removed under direct vision. The additional 3 skin incisions were reapproximated with skin selene followed by sterile dressing. The patient tolerated the procedure well, was awoken up in the OR and transferred to the PACU in fair condition. Please note that this procedure took approximately 120 minutes, representing double the typical operative time for this type of procedure. [id number]/CPS #: [id number] MTDD
[2018-05-09] MEDS: Acetaminophen TAB* 325 MG PO PRN (16:50)
[2018-05-09] MEDS: Insulin GLARGINE(*) 1 UNITS UNIT SUBCUT SCH (22:31)
[2018-05-10] MEDS: NS 0.9% 1000 ML* 1,000 ML IV SCH ×3 (02:58→19:13)
[2018-05-10] MEDS: ZOSYN 3.375 GM Q8H per EXTENDED INFUSION IVPB SCH ×6 (02:58→19:09)
[2018-05-10] MEDS: Acetaminophen TAB* 325 MG PO PRN (05:34)
[2018-05-10] MEDS: Heparin VIAL(*) 5000 UNITS/ML VIAL (FIVE THOUSAND) SUBCUT SCH ×3 (05:35→21:55)
[2018-05-10 05:36] LABS: Hematocrit 36 % (42-52); Hemoglobin 12.3 g/dl (14.0-18.0); Mean Corpuscular HGB Conc 35 g/dl (31-36); Mean Corpuscular Hemoglobin 32 pg (27-31); Mean Corpuscular Volume 92 fL (80-94); Mean Platelet Volume 8.1 fL (7.4-10.4); Platelet Count 203 10^3/ul (150-450); Red Blood Count 3.91 10^6/ul (4.00-5.40); Red Cell Distribution Width 13 % (10.5-15); White Blood Count 7.6 10^3/ul (3.5-10.8)
[2018-05-10 05:52] LABS: EGFR Non-African American 123.5 (>60)
--- NOTE | 2018-05-10 07:05 | PN ---
Subjective Date of Service: 05/09/18 Interval History: Mr. Pinzon was seen and examined by me on 05/09 at 11am. He was drowsy but responded to voice and answered my questions appropriately. He denied any pain , nausea. He had some broth for breakfast and was not requiring pain meds. Objective Active Medications: Acetaminophen (Tylenol Tab*) 650 mg PO Q4H PRN PRN Reason: FEVER/PAIN Last Admin: 05/10/18 05:34 Dose: 650 mg Albuterol (Ventolin Hfa Inhaler*) 2 puff INH Q4H PRN PRN Reason: SOB/WHEEZING Dextrose (D50w Syringe 50 Ml*) 12.5 gm IV PUSH .FOR FS < 60 - SS PRN PRN Reason: FS < 60 Docusate Sodium (Colace Cap*) 100 mg PO BID PRN PRN Reason: CONSTIPATION Famotidine (Pepcid Iv*) 20 mg IV DAILY [facility] Heparin Sodium (Porcine) (Heparin Vial(*)) 5,000 units SUBCUT Q8HR [facility] Last Admin: 05/10/18 05:35 Dose: 5,000 units Sodium Chloride (Ns 0.9% 1000 Ml*) 1,000 mls @ 125 mls/hr IV PER RATE [facility] Last Admin: 05/10/18 02:58 Dose: 125 mls/hr Piperacillin Sod/Tazobactam (Sod 3.375 gm/ Sodium Chloride) 100 mls @ 25 mls/ hr IVPB Q8H [facility] Last Admin: 05/10/18 02:58 Dose: 25 mls/hr Insulin Glargine (Lantus(*)) 20 units SUBCUT Q12H [facility] Last Admin: 05/09/18 22:31 Dose: 20 units Insulin Human Lispro (Humalog*) 0 units SUBCUT [facility]; Protocol Last Admin: 05/09/18 18:19 Dose: Not Given Insulin Human Lispro (Humalog*) 0 units SUBCUT [facility]; Protocol Last Admin: 05/09/18 18:19 Dose: 9 units Mometasone Furoate/Formoterol Fumar (Dulera 200/5 Mdi*) 2 puff INH BID [facility] Last Admin: 05/09/18 19:29 Dose: 2 puff Morphine Sulfate (Morphine Vial*) 2 mg IV Q4H PRN PRN Reason: PAIN - MILD Last Admin: 05/08/18 01:35 Dose: 2 mg Ondansetron HCl (Zofran Inj*) 4 mg IV Q4H PRN PRN Reason: NAUSEA/VOMITING Pharmacy Consult (Zosyn Per Pharmacy*) 1 note FOLLOW UP .ZOSYN PER PHARMACY FAM Oxygen Devices in Use Now: None Appearance: sleepy, arousable, nontoxic Eyes: No Scleral Icterus Ears/Nose/Mouth/Throat: NL Teeth, Lips, Gums Neck: NL Appearance and Movements; NL JVP Respiratory: Symmetrical Chest Expansion and Respiratory Effort Cardiovascular: NL Sounds; No Murmurs; No JVD, RRR Abdominal: - - distended, tender to deep palpation, JHONNY drain RUQ Lymphatic: No Cervical Adenopathy Extremities: No Edema Skin: No Rash or Ulcers Result Diagrams: 05/10/18 05:23 05/10/18 05:23 Microbiology and Other Data: Microbiology 05/08/18 00:11 Aerobic Blood Culture - Preliminary Blood Venous No Growth Day 2 Anaerobic Blood Culture - Preliminary No Growth Day 2 05/08/18 00:11 Aerobic Blood Culture - Preliminary Blood Venous No Growth Day 2 Anaerobic Blood Culture - Preliminary No Growth Day 2 Assess/Plan/Problems-Billing Assessment: This is a 58 year old man with history of diabetes who presented with RUQ pain and was found to have acute cholecystitis. - Patient Problems (1) Acute cholecystitis Current Visit: Yes Status: Acute Code(s): K81.0 - ACUTE CHOLECYSTITIS SNOMED Code(s): 72289065 Comment: POD #1 cholecystectomy, with JOHNNY drain continue pip/tazo bili and alk phos elevated today; discussed with surgery and is to be expected (2) Diabetes mellitus Current Visit: Yes Status: Acute Code(s): E11.9 - TYPE 2 DIABETES MELLITUS WITHOUT COMPLICATIONS SNOMED Code(s): 01709954 Comment: poorly controlled; he and his admit he takes his insulin inconsistently (3) HTN (hypertension) Current Visit: Yes Status: Acute Code(s): I10 - ESSENTIAL (PRIMARY) HYPERTENSION SNOMED Code(s): 80442951 Comment: he also admits he takes his antihypertensives sporadically (4) Drowsiness Current Visit: Yes Status: Acute Comment: metabolic work up was negative; lactate, vbg, cbc, unremarkable may have undiagnosed VIKKI; may also be clearing anesthesia slowly
[2018-05-10] MEDS: KCL 20 MEQ/100 ML IVPREMIX* 20 MEQ/100 ML BAG IV SCH ×2 (10:06→12:25)
[2018-05-10] MEDS: Famotidine IV* 10 MG/ML 2 ML (20 mg) IV SCH (10:11)
[2018-05-10] MEDS: Insulin LISPRO* 1 UNITS UNIT SUBCUT SCH ×6 (10:12→18:21)
[2018-05-10] MEDS: Insulin GLARGINE(*) 1 UNITS UNIT SUBCUT SCH ×2 (10:13→21:54)
[2018-05-10] MEDS: Mometasone/Formoter 200/5 MDI INH SCH ×2 (12:28→19:39)
--- NOTE | 2018-05-10 12:58 | PN ---
Progress Note - Progress Note Date of Service: 05/10/18 SOAP: Subjective: Pt seen and examined. Feeling better today appetite improving OOB, no abdo pain, no flatus Objective: Temp Pulse Resp BP Pulse Ox 97.6 F 76 18 108/72 94 05/10/18 07:22 05/10/18 07:22 05/10/18 07:48 05/10/18 07:22 05/10/18 07:22 Intake & Output 05/09/18 05/10/18 05/10/18 22:59 06:59 14:59 Intake Total 3525 1440 1096 Output Total 1310 1135 1000 Balance 2215 305 96 a and o x3, more alert today lungs poor effort, no rales abdo: obese, distended, NT dresisng intact, JHONNY : serous with possibility of bile tinge drainage around JHONNY ext no swelling, ankle tenderness unchanged labs noted Assessment: POD 1 lap marisel, Path Pending, likely bile leak Plan: encourage PO intake and ambulation JHONNY drain teaching likely admission through weekend abx
--- NOTE | 2018-05-10 19:08 | PN ---
Subjective Date of Service: 05/10/18 Interval History: Mr. Pinzon has been out of bed and feels okay this morning. Again he is sleeping when I walked in to see him. He says he usually spends all his days in bed. He sleeps most of the time. He has no pain and his appetite is okay on clear liquids. Objective Active Medications: Acetaminophen (Tylenol Tab*) 650 mg PO Q4H PRN PRN Reason: FEVER/PAIN Last Admin: 05/10/18 05:34 Dose: 650 mg Albuterol (Ventolin Hfa Inhaler*) 2 puff INH Q4H PRN PRN Reason: SOB/WHEEZING Dextrose (D50w Syringe 50 Ml*) 12.5 gm IV PUSH .FOR FS < 60 - SS PRN PRN Reason: FS < 60 Docusate Sodium (Colace Cap*) 100 mg PO BID PRN PRN Reason: CONSTIPATION Famotidine (Pepcid Iv*) 20 mg IV DAILY [facility] Last Admin: 05/10/18 10:11 Dose: 20 mg Heparin Sodium (Porcine) (Heparin Vial(*)) 5,000 units SUBCUT Q8HR [facility] Last Admin: 05/10/18 14:10 Dose: 5,000 units Sodium Chloride (Ns 0.9% 1000 Ml*) 1,000 mls @ 125 mls/hr IV PER RATE [facility] Last Admin: 05/10/18 10:04 Dose: 125 mls/hr Piperacillin Sod/Tazobactam (Sod 3.375 gm/ Sodium Chloride) 100 mls @ 25 mls/ hr IVPB Q8H [facility] Last Admin: 05/10/18 12:28 Dose: 25 mls/hr Insulin Glargine (Lantus(*)) 20 units SUBCUT Q12H [facility] Last Admin: 05/10/18 10:13 Dose: 20 units Insulin Human Lispro (Humalog*) 0 units SUBCUT AC [facility]; Protocol Last Admin: 05/10/18 18:21 Dose: 9 unit Insulin Human Lispro (Humalog*) 0 units SUBCUT AC [facility]; Protocol Last Admin: 05/10/18 18:21 Dose: 8 units Mometasone Furoate/Formoterol Fumar (Dulera 200/5 Mdi*) 2 puff INH BID [facility] Last Admin: 05/10/18 12:28 Dose: 2 puff Morphine Sulfate (Morphine Vial*) 2 mg IV Q4H PRN PRN Reason: PAIN - MILD Last Admin: 05/08/18 01:35 Dose: 2 mg Ondansetron HCl (Zofran Inj*) 4 mg IV Q4H PRN PRN Reason: NAUSEA/VOMITING Pharmacy Consult (Zosyn Per Pharmacy*) 1 note FOLLOW UP .ZOSYN PER PHARMACY [facility] Vital Signs - 8 hr 05/10/18 16:07 Temperature 97.6 F Pulse Rate 88 Respiratory 17 Rate Blood Pressure 123/76 (mmHg) O2 Sat by Pulse 94 Oximetry Oxygen Devices in Use Now: None Appearance: sleepy but arousable to voice, nontoxic Eyes: No Scleral Icterus Ears/Nose/Mouth/Throat: NL Teeth, Lips, Gums Respiratory: Symmetrical Chest Expansion and Respiratory Effort, Clear to Auscultation Cardiovascular: NL Sounds; No Murmurs; No JVD, RRR Abdominal: - - rotund. he thinks it is the same size as usual. JHONNY drain with bloody fluid, yellow fluid has soaked the abdominal pad and his gown. tender to deep palpation. Extremities: No Edema Skin: No Rash or Ulcers Neurological: Alert and Oriented x 3, - - strenght 5/5, face symmetric, follows all commands Result Diagrams: 05/10/18 05:23 05/10/18 05:23 Microbiology and Other Data: Microbiology 05/08/18 00:11 Aerobic Blood Culture - Preliminary Blood Venous No Growth Day 2 Anaerobic Blood Culture - Preliminary No Growth Day 2 05/08/18 00:11 Aerobic Blood Culture - Preliminary Blood Venous No Growth Day 2 Anaerobic Blood Culture - Preliminary No Growth Day 2 Assess/Plan/Problems-Billing Assessment: This is a 58 year old man with history of diabetes who presented with RUQ pain and was found to have acute cholecystitis. - Patient Problems (1) Acute cholecystitis Current Visit: Yes Status: Acute Code(s): K81.0 - ACUTE CHOLECYSTITIS SNOMED Code(s): 09629546 Comment: POD #2 cholecystectomy, with JHONNY drain due to gangrene continue pip/tazo bili and phos are downtrending he is very inactive at baseline which is not helping his recovery he needs to get out of bed and needs PT (2) Diabetes mellitus Current Visit: Yes Status: Acute Code(s): E11.9 - TYPE 2 DIABETES MELLITUS WITHOUT COMPLICATIONS SNOMED Code(s): 79643395 Comment: poorly controlled; he and his admit he takes his insulin inconsistently (3) HTN (hypertension) Current Visit: Yes Status: Acute Code(s): I10 - ESSENTIAL (PRIMARY) HYPERTENSION SNOMED Code(s): 90623186 Comment: he also admits he takes his antihypertensives sporadically (4) Drowsiness Current Visit: Yes Status: Acute Comment: metabolic work up was negative; lactate, vbg, cbc, unremarkable may have undiagnosed IVKKI; may also be clearing anesthesia slowly awakes easily
[2018-05-11] MEDS: ZOSYN 3.375 GM Q8H per EXTENDED INFUSION IVPB SCH ×6 (03:03→20:26)
[2018-05-11] MEDS: Heparin VIAL(*) 5000 UNITS/ML VIAL (FIVE THOUSAND) SUBCUT SCH ×3 (06:03→22:40)
[2018-05-11] MEDS: Mometasone/Formoter 200/5 MDI INH SCH ×2 (08:06→19:05)
--- NOTE | 2018-05-11 09:08 | PN ---
Progress Note - Progress Note Date of Service: 05/11/18 SOAP: Subjective: Pt seen and examined. Feels better today; no nausea. 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
[2018-05-11] MEDS ORDERED: Potassium Chloride LIQUID* 20 MEQ PACKET PO ONE (09:29)
--- NOTE | 2018-05-11 09:29 | PN ---
Subjective Date of Service: 05/11/18 Interval History: Mr. Pinzon is sitting up eating. He feels good. He has no pain. He is happy to be eating a regular diet. He has moved his bowels and has no nausea. Objective Active Medications: Acetaminophen (Tylenol Tab*) 650 mg PO Q4H PRN PRN Reason: FEVER/PAIN Last Admin: 05/10/18 05:34 Dose: 650 mg Albuterol (Ventolin Hfa Inhaler*) 2 puff INH Q4H PRN PRN Reason: SOB/WHEEZING Dextrose (D50w Syringe 50 Ml*) 12.5 gm IV PUSH .FOR FS < 60 - SS PRN PRN Reason: FS < 60 Docusate Sodium (Colace Cap*) 100 mg PO BID PRN PRN Reason: CONSTIPATION Famotidine (Pepcid Iv*) 20 mg IV DAILY [facility] Last Admin: 05/10/18 10:11 Dose: 20 mg Heparin Sodium (Porcine) (Heparin Vial(*)) 5,000 units SUBCUT Q8HR [facility] Last Admin: 05/11/18 06:03 Dose: 5,000 units Piperacillin Sod/Tazobactam (Sod 3.375 gm/ Sodium Chloride) 100 mls @ 25 mls/ hr IVPB Q8H [facility] Last Admin: 05/11/18 03:03 Dose: 25 mls/hr Insulin Glargine (Lantus(*)) 20 units SUBCUT Q12H [facility] Last Admin: 05/10/18 21:54 Dose: 20 units Insulin Human Lispro (Humalog*) 0 units SUBCUT [facility]; Protocol Last Admin: 05/10/18 18:21 Dose: 9 unit Insulin Human Lispro (Humalog*) 0 units SUBCUT AC [facility]; Protocol Last Admin: 05/10/18 18:21 Dose: 8 units Mometasone Furoate/Formoterol Fumar (Dulera 200/5 Mdi*) 2 puff INH BID [facility] Last Admin: 05/11/18 08:06 Dose: 2 puff Morphine Sulfate (Morphine Vial*) 2 mg IV Q4H PRN PRN Reason: PAIN - MILD Last Admin: 05/08/18 01:35 Dose: 2 mg Ondansetron HCl (Zofran Inj*) 4 mg IV Q4H PRN PRN Reason: NAUSEA/VOMITING Pharmacy Consult (Zosyn Per Pharmacy*) 1 note FOLLOW UP .ZOSYN PER PHARMACY [facility] Vital Signs - 8 hr 05/11/18 05/11/18 05/11/18 03:13 07:20 08:06 Temperature 99.6 F 98.3 F Pulse Rate 81 80 81 Respiratory 18 20 18 Rate Blood Pressure 128/75 111/56 (mmHg) O2 Sat by Pulse 93 94 94 Oximetry Oxygen Devices in Use Now: None Appearance: alert, well appearing Eyes: - - left eye is nonreactive at baseline Neck: NL Appearance and Movements; NL JVP Respiratory: Symmetrical Chest Expansion and Respiratory Effort, Clear to Auscultation Cardiovascular: NL Sounds; No Murmurs; No JVD, RRR Abdominal: - - rotund, nondistended. JHONNY drain has serosanguinous fluid; ostomy bag also contains fluid. tender to deep palpation Lymphatic: No Cervical Adenopathy Extremities: No Edema Result Diagrams: 05/10/18 05:23 05/10/18 05:23 Microbiology and Other Data: Microbiology 05/08/18 00:11 Aerobic Blood Culture - Preliminary Blood Venous No Growth Day 2 Anaerobic Blood Culture - Preliminary No Growth Day 2 05/08/18 00:11 Aerobic Blood Culture - Preliminary Blood Venous No Growth Day 2 Anaerobic Blood Culture - Preliminary No Growth Day 2 Assess/Plan/Problems-Billing Assessment: This is a 58 year old man with history of diabetes who presented with RUQ pain and was found to have acute cholecystitis. - Patient Problems (1) Acute cholecystitis Current Visit: Yes Status: Acute Code(s): K81.0 - ACUTE CHOLECYSTITIS SNOMED Code(s): 88256793 Comment: POD #3 cholecystectomy, with JHONNY drain due to gangrene continue pip/tazo bili and phos are downtrending he is very inactive at baseline which is not helping his recovery he needs to get out of bed more today (2) Diabetes mellitus Current Visit: Yes Status: Acute Code(s): E11.9 - TYPE 2 DIABETES MELLITUS WITHOUT COMPLICATIONS SNOMED Code(s): 80000704 Comment: poorly controlled; he and his admit he takes his insulin inconsistently I am increasing his lantus today (3) HTN (hypertension) Current Visit: Yes Status: Acute Code(s): I10 - ESSENTIAL (PRIMARY) HYPERTENSION SNOMED Code(s): 16285716 Comment: he also admits he takes his antihypertensives sporadically at goal on home meds (4) Drowsiness Current Visit: Yes Status: Acute Comment: resolved today MUCH more alert and partipating
[2018-05-11] MEDS: Insulin LISPRO* 1 UNITS UNIT SUBCUT SCH ×6 (10:17→18:27)
[2018-05-11] MEDS: Insulin GLARGINE(*) 1 UNITS UNIT SUBCUT SCH ×3 (10:18→22:40)
[2018-05-11] MEDS: Famotidine IV* 10 MG/ML 2 ML (20 mg) IV SCH (10:19)
[2018-05-12] MEDS ORDERED: Artificial Tears* 15 ML BTL BOTH EYES PRN (00:03)
[2018-05-12] MEDS: ZOSYN 3.375 GM Q8H per EXTENDED INFUSION IVPB SCH ×4 (04:05→11:14)
[2018-05-12] MEDS: Heparin VIAL(*) 5000 UNITS/ML VIAL (FIVE THOUSAND) SUBCUT SCH ×2 (06:03→13:49)
[2018-05-12] MEDS: Insulin GLARGINE(*) 1 UNITS UNIT SUBCUT SCH (09:03)
[2018-05-12] MEDS: Famotidine IV* 10 MG/ML 2 ML (20 mg) IV SCH (09:03)
[2018-05-12 09:12] LABS: Hematocrit 37 % (42-52); Hemoglobin 12.7 g/dl (14.0-18.0); Mean Corpuscular HGB Conc 34 g/dl (31-36); Mean Corpuscular Hemoglobin 31 pg (27-31); Mean Corpuscular Volume 91 fL (80-94); Mean Platelet Volume 7.9 fL (7.4-10.4); Platelet Count 277 10^3/ul (150-450); Red Blood Count 4.07 10^6/ul (4.00-5.40); Red Cell Distribution Width 13 % (10.5-15); White Blood Count 7.3 10^3/ul (3.5-10.8)
[2018-05-12 09:28] LABS: EGFR Non-African American 111.7 (>60)
[2018-05-12] MEDS: Insulin LISPRO* 1 UNITS UNIT SUBCUT SCH ×4 (09:42→13:49)
[2018-05-12] MEDS: Mometasone/Formoter 200/5 MDI INH SCH (09:43)
--- NOTE | 2018-05-12 11:33 | PN ---
Progress Note - Progress Note Date of Service: 05/12/18 SOAP: Subjective: Pt seen and examined. Feeling better today. wants to go home. No nausea some ruq pain but improving. Objective: Temp Pulse Resp BP Pulse Ox 98.6 F 73 18 129/70 92 05/12/18 07:53 05/12/18 07:53 05/12/18 08:00 05/12/18 07:53 05/12/18 07:53 Intake & Output 05/11/18 05/12/18 05/12/18 22:59 06:59 14:59 Intake Total 2200 2601 Output Total 3985 1925 1200 Balance -1785 676 -1200 lungs clear abdo: soft/ obese, tender wq/o rebound no redness JHONNY serous no calf tenderness Assessment: POD 3 lap marisel, no evidence of bile leak Plan: home on abx JHONNY drain f/u at [facility] this week- pt aware that he is to call case d/w hospitalist
[2018-05-12 11:52] VITALS: BP 157/91
[2018-05-12] MEDS ORDERED: Potassium Chloride LIQUID* 20 MEQ PACKET PO ONE (13:45)
--- NOTE | 2018-05-13 07:24 | DS ---
CC: Dr. Ricketts; Dr. Frias * DISCHARGE SUMMARY: DATE OF ADMISSION: 05/07/18 DATE OF DISCHARGE: 05/12/18 PRINCIPAL DISCHARGE DIAGNOSES: 1. Sepsis. 2. Acute gangrenous cholecystitis. 3. Poorly controlled type 2 diabetes. 4. Chronic obstructive pulmonary disease. MEDICATIONS AT THE TIME OF DISCHARGE: 1. Glipizide 10 mg daily. 2. Lasix 20 mg daily. 3. Levothyroxine 125 mcg daily. 4. Metformin 1000 mg b.i.d. 5. Januvia 100 mg daily. 6. Basaglar 26 units b.i.d. 7. Ciprofloxacin 500 mg b.i.d. for 5 more days. 8. Metronidazole 500 mg t.i.d. for 5 more days. PHYSICAL EXAMINATION AT DISCHARGE: Vital Signs: Temperature 99.3, heart rate 88, respiratory rate 16, pulse ox 94% on room air, and blood pressure 157/91. General: Alert, well-appearing man in no distress. He is nontoxic appearing. HEENT: Pupils are equal, round, and reactive to light. Oral mucosa is moist. No oropharyngeal exudates or erythema. Neck: No JVP, no cervical adenopathy. Chest: Regular rate and rhythm. No murmurs. Lungs are clear bilaterally. Abdomen: Rotund with a JHONNY drain in the right upper quadrant draining serosanguineous fluid. He has normoactive bowel sounds and is nontender to palpation. Extremities: No edema, no rashes, no ulcers. Neurologic: Oriented x3, follows all commands. Strength 5/5. Sensation intact. HOSPITAL COURSE BY PROBLEM: 1. Acute gangrenous cholecystitis. He presented at admission with right upper quadrant pain and a gallbladder ultrasound showed a thickened gallbladder wall measuring 4.5 mm with a positive sonographic Conner sign and pericholecystic fluid. He was started on Zosyn and Surgery was consulted. On 05/09/18, he went to the OR with Dr. Frias who performed a laparoscopic cholecystectomy and placed a #10 JHONNY drain. He tolerated the procedure well, was drowsy following anesthesia for approximately 24 hours but improved slowly and by the time of discharge was very alert, working with physical therapy, and had recovered completely. He had no evidence of a bile leak according to Dr. Frias and he needs 5 more days of p.o. antibiotics and will follow up with Dr. Frias this week in his office. 2. Sepsis secondary to #1. He was treated with Zosyn and a laparoscopic cholecystectomy and his sepsis resolved. 3. Poorly controlled diabetes. He openly admitted to me that he rarely takes his insulin. I titrated his insulin to 26 units b.i.d. while he was here and have resumed his home antiglycemic meds. He is to follow up with Dr. Ricketts and agrees to do so this week. 4. Chronic obstructive pulmonary disease. He had no evidence of a flare on this admission. 5. Disposition. Mr. Pinzon is discharged to home on 05/12/18 with his girlfriend. He understands that he needs to follow up with Dr. Ricketts and Dr. Frias this week. He is to return to the emergency department should the drainage from his JHONNY change or increase in volume, if he develops worsening right upper quadrant pain or any fevers. [id number]/[facility] #: [id number] MTDD
== END 2018-05-12 14:25 | disposition home or self-care (01) | DRG 710 ==
LOC: ED 17:18 → MED 23:31 → SSU 05-09 02:33
PROVIDERS: ADMIT Pediatrics; ATTEND Internal Medicine
PROC: 0FT44ZZ Resection of Gallbladder, Percutaneous Endoscopic Approach (ICD-10-PCS; principal; 2018-05-09)
DX: A41.9 Sepsis, unspecified organism (principal); K76.0 Fatty (change of) liver, not elsewhere classified; J44.9 Chronic obstructive pulmonary disease, unspecified; E11.65 Type 2 diabetes mellitus with hyperglycemia; K82.A1 Gangrene of gallbladder in cholecystitis; E66.9 Obesity, unspecified; I10 Essential (primary) hypertension; Z68.36 Body mass index [BMI] 36.0-36.9, adult; Z79.4 Long term (current) use of insulin; Z79.899 Other long term (current) drug therapy; Z79.84 Long term (current) use of oral hypoglycemic drugs
CPT/HCPCS: 36415; 71045; 76705; 80053; 81003; 81015; 82140; 82248; 82803; 82947; 83036; 83605; 83690; 83735; 84100; 84484; 85025; 85027; 86850; 86900; 86901; 86922; 87040; 88304; 90686; 93005; 94640; 99284; A9270-GY; J0330; J1644; J2250; J2270; J2405; J2543; J2704; J3010; J3480

== ENCOUNTER 2019-02-06 11:43 | Emergency (ER) | payer OTHER ==
[2019-02-06 12:34] VITALS: BP 145/84
--- NOTE | 2019-02-06 12:49 | UC ---
Eye Complaint HPI - HPI Summary HPI Summary: 59 yo male presents with LEFT eye injury. 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 He had some irritation and burning. Last night his symptoms continued and he called and ambulance and they flushed his eye. This morning he is still having symptoms and reports a "fogginess" to his vision of that eye. He does have some colored drainage. Denies fever or chills. No pain to the eye. 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 Time Seen by Provider: 02/06/19 12:48 Hx Obtained From: Patient Onset/Duration: Sudden Onset Severity Initially: Mild Severity Currently: Mild Pain Intensity: 3 Pain Scale Used: 0-10 Numeric - Allergies/Home Medications Allergies/Adverse Reactions: Allergies Allergy/AdvReac Type Severity Reaction Status Date / Time No Known Allergies Allergy Verified 02/06/19 12:35 PMH/Surg Hx/FS Hx/Imm Hx - Surgical History Surgical History: None - Family History Known Family History: Negative: Blood Disorder - Social History Alcohol Use: None Substance Use Type: None Smoking Status (MU): Former Smoker - Immunization History Most Recent Influenza Vaccination: 05/08/18 Most Recent Pneumonia Vaccination: never Review of Systems All Other Systems Reviewed And Are Negative: No Constitutional: Positive: Negative Skin: Positive: Negative Eyes: Positive: Blurred Vision, Drainage, Eye Redness ENT: Positive: Negative Respiratory: Positive: Negative Cardiovascular: Positive: Negative Neurological: Positive: Negative Psychological: Positive: Negative Physical Exam - Summary Physical Exam Summary: GENERAL: WDWN. No pain distress. SKIN: No rashes, sores, lesions, or open wounds. HEENT: Head: AT/NC Eyes: EOM intact. PERRLA. LEFT EYE: Mild scleral injection. Conjunctiva with mild erythema and inflammation. Mild yellow discharge. RIGHT EYE: Conjunctiva clear without inflammation or discharge. No FBs appreciated Nose: NTTP maxillary and frontal sinus. NECK: Supple. Nontender. No lymphadenopathy. CHEST: No accessory muscle use. Breathing comfortably and in no distress. CV: Pulses intact. Cap refill <2seconds NEURO: Alert. PSYCH: Age appropriate behavior. Triage Information Reviewed: Yes Vital Signs: Initial Vital Signs Temp 98 F 02/06/19 12:32 Pulse 80 02/06/19 12:32 Resp 18 02/06/19 12:32 BP 145/84 02/06/19 12:32 Pulse Ox 99 02/06/19 12:32 Vital Signs Reviewed: Yes Eye Complaint Course/Dx - Course Course Of Treatment: Called poison control and they recommended urgent referral to Ophthalmology as pt only has one good eye and should not still be causing any discomfort. His exam appears consistent with a conjunctivitis, but given his decreased vision and this affected eye being his only usable eye - I called Dr. Carreno's office and they can see pt now for further eval. I discussed this with pt and he will go there now. - Differential Dx/Diagnosis Provider Diagnosis: Chemical conjunctivitis of left eye Discharge ED - Sign-Out/Discharge Documenting (check all that apply): Patient Departure All imaging exams completed and their final reports reviewed: No Studies - Discharge Plan Condition: Stable Disposition: HOME Patient Education Materials: [facility] (ED) Referrals: Aurea Ricketts MD [Primary Care Provider] - Toribio Carreno MD [Medical Doctor] - Additional Instructions: If you develop a fever, shortness of breath, chest pain, new or worsening symptoms - please call your PCP or go to the ED immediately. Your blood pressure was high at todays visit. Please see your primary provider within 4 weeks for recheck and re-evaluation. Please go to Dr. Carreno's office now for further evaluation - Billing Disposition and Condition Condition: STABLE Disposition: Home
== END 2019-02-06 13:04 | disposition home or self-care (01) ==
LOC: UCEAST 11:43
DX: H10.89 Other conjunctivitis (principal); Z87.891 Personal history of nicotine dependence
CPT/HCPCS: 99211; G0463

== ENCOUNTER 2020-01-29 11:28 | Inpatient (IN) ==
[2020-01-29] MEDS ORDERED: Lactated Ringers 1000 ml BAG 1,000 ML IV ONE ×3 (11:43→17:06)
[2020-01-29 13:10] LABS: ABS Lymphocytes 0.4 10^3/ul (1.0-4.8); ABS Monocytes 0.4 10^3/ul (0-0.8); ABS Neutrophils 5.4 10^3/ul (1.5-7.7); Hematocrit 21 % (42-52); Hemoglobin 7.4 g/dL (14.0-18.0); Lymphocyte % 6.1 %; Mean Corpuscular HGB Conc 35 g/dL (31-36); Mean Corpuscular Hemoglobin 33 pg (27-31); Mean Corpuscular Volume 93 fL (80-94); Mean Platelet Volume 7.9 fL (7.4-10.4); Platelet Count 105 10^3/uL (150-450); Red Blood Count 2.24 10^6 /uL (4.18-5.48); Red Cell Distribution Width 13 % (10-15); White Blood Count 6.3 10^3/uL (3.5-10.8)
[2020-01-29 13:29] LABS: ALT 5 U/L (7-52); AST 4 U/L (13-39); Alkaline Phosphatase 19 U/L (34-104); Blood Urea Nitrogen 3 mg/dL (6-24); Chloride 102 mmol/L (101-111); EGFR African American 370.1 (>60); EGFR Non-African American 305.8 (>60); Glucose 79 mg/dL (70-100); Indirect Bilirubin 0.5 mg/dL (0.3-1.0); Lipase < 10 U/L (11.0-82.0); Potassium 3.9 mmol/L (3.5-5.0); Sodium 129 mmol/L (135-145)
[2020-01-29 13:44] LABS: TSH Ultra Thyroid Stim Horm 4.28 mcIU/mL (0.34-5.60)
[2020-01-29 13:51] LABS: Albumin 1.2 g/dL (3.2-5.2); Total Protein < 3.0 g/dL (6.4-8.9)
[2020-01-29 13:52] LABS: Anion Gap 16 mmol/L (2-11); CO2 Carbon Dioxide 11 mmol/L (22-32); Calcium 6.3 mg/dL (8.6-10.3); Magnesium 0.5 mg/dL (1.9-2.7)
[2020-01-29] MEDS ORDERED: Magnesium Sulfate 2 gm BAG 2 GM/50 ML BAG IVPB ONE (13:55)
[2020-01-29] MEDS ORDERED: Sodium Chloride CONC. 4 MEQ/ML 38.5 MEQ, Potassium Chloride IV 10 MEQ in D10W 1000 ml B... IV SCH (14:30)
[2020-01-29 14:44] LABS: BUN/Creatinine Ratio 8.3 (8-20); Blood Urea Nitrogen 6 mg/dL (6-24); CO2 Carbon Dioxide 27 mmol/L (22-32); Calcium 8.7 mg/dL (8.6-10.3); Chloride 99 mmol/L (101-111); EGFR African American 134.7 (>60); EGFR Non-African American 111.4 (>60); Glucose 192 mg/dL (70-100); Magnesium 1.8 mg/dL (1.9-2.7); Sodium 133 mmol/L (135-145)
[2020-01-29 15:21] LABS: Anion Gap 7 mmol/L (2-11)
[2020-01-29 15:59] LABS: ABS Lymphocytes 0.7 10^3/ul (1.0-4.8); ABS Monocytes 0.8 10^3/ul (0-0.8); ABS Neutrophils 10.4 10^3/ul (1.5-7.7); Hematocrit 42 % (42-52); Lymphocyte % 5.6 %; Mean Corpuscular HGB Conc 36 g/dL (31-36); Mean Corpuscular Hemoglobin 32 pg (27-31); Mean Corpuscular Volume 90 fL (80-94); Mean Platelet Volume 7.5 fL (7.4-10.4); Platelet Count 195 10^3/uL (150-450); Red Blood Count 4.65 10^6 /uL (4.18-5.48); Red Cell Distribution Width 13 % (10-15)
[2020-01-29 16:30] LABS: Potassium 3.5 mmol/L (3.5-5.0)
[2020-01-29 16:31] LABS: Albumin 3.9 g/dL (3.2-5.2); Albumin/Globulin Ratio 1.3 (1-3); BUN/Creatinine Ratio 7.9 (8-20); EGFR African American 126.6 (>60); EGFR Non-African American 104.6 (>60); Globulin 2.9 g/dL (2-4); Indirect Bilirubin 1.3 mg/dL (0.3-1.0); Magnesium 1.9 mg/dL (1.9-2.7); Total Bilirubin 1.6 mg/dL (0.2-1.0); Total Protein 6.8 g/dL (6.4-8.9)
[2020-01-29 17:06] LABS: Activated Partial Thrombo Time 27.8 seconds (26.0-38.0); INR 1.29 (0.82-1.09)
[2020-01-29] MEDS ORDERED: Ondansetron 4 mg VIAL 2 MG/ML 2 ml VIAL IV ONE (17:06)
[2020-01-29] MEDS ORDERED: Famotidine IV 10 MG/ML 2 ml VIAL (20 mg) IV SLOW PU ONE (17:06)
[2020-01-29] MEDS ORDERED: cefTRIAXone 1 gm/50 mL NS BAG 1 GM/50 ML BAG IVPB ONE (17:37)
[2020-01-29] MEDS ORDERED: Azithromycin 500 mg/250 ml NS 500 MG/250 ML BAG IVPB ONE (17:37)
[2020-01-29 17:38] LABS: Urine Appearance Clear; Urine Bilirubin Negative (Negative); Urine Blood Negative (Negative); Urine Color Yellow; Urine Glucose 1+(50 mg/dL) (Negative); Urine Ketones Negative (Negative); Urine Nitrite Negative (Negative); Urine Protein Negative (Negative); Urine Specific Gravity 1.009 (1.010-1.030); Urine Urobilinogen Negative (Negative)
[2020-01-29] MEDS ORDERED: Ondansetron 4 mg VIAL 2 MG/ML 2 ml VIAL IV PRN (19:48)
[2020-01-29 19:50] LABS: Urine Benzodiazepine Screen None Detected (None Detect); Urine Cannabinoids Screen None Detected (None Detect); Urine Opiates Screen None Detected (None Detect)
[2020-01-29] MEDS ORDERED: Dextrose 50% Syringe 50 ml 25 GM/50 ML SYRINGE IV PUSH PRN (19:59)
[2020-01-29] MEDS ORDERED: Albuterol HFA INHALER 8 gm MDI INH PRN (20:05)
[2020-01-29 20:18] LABS: C Reactive Protein 117.04 mg/L (<8.01)
[2020-01-29] MEDS: Heparin 5000 UNITS/ML 1 mL VIAL SUBCUT SCH (22:57)
[2020-01-29] MEDS: Insulin GLARGINE 100 un/ml 10 ml VIAL SUBCUT SCH (23:16)
[2020-01-29] MEDS: NS 0.9% 1000 ml BAG 1,000 ML IV SCH (23:23)
[2020-01-30] MEDS: NS 0.9% 1000 ml BAG 1,000 ML IV SCH (06:08)
[2020-01-30] MEDS: Heparin 5000 UNITS/ML 1 mL VIAL SUBCUT SCH ×3 (06:09→21:59)
[2020-01-30 07:13] LABS: ABS Basophils 0.1 10^3/ul (0-0.2); ABS Lymphocytes 0.9 10^3/ul (1.0-4.8); ABS Neutrophils 9.7 10^3/ul (1.5-7.7); Hematocrit 39 % (42-52); Hemoglobin 14.5 g/dL (14.0-18.0); Lymphocyte % 7.7 %; Mean Corpuscular HGB Conc 37 g/dL (31-36); Mean Corpuscular Hemoglobin 33 pg (27-31); Mean Corpuscular Volume 89 fL (80-94); Mean Platelet Volume 7.9 fL (7.4-10.4); Platelet Count 205 10^3/uL (150-450); Red Blood Count 4.39 10^6 /uL (4.18-5.48); Red Cell Distribution Width 14 % (10-15); White Blood Count 11.6 10^3/uL (3.5-10.8)
[2020-01-30 07:27] LABS: BUN/Creatinine Ratio 9.9 (8-20); Calcium 8.4 mg/dL (8.6-10.3); EGFR African American 136.9 (>60); EGFR Non-African American 113.2 (>60); Potassium 3.2 mmol/L (3.5-5.0)
[2020-01-30 08:25] LABS: BUN/Creatinine Ratio 9.9 (8-20); Calcium 8.2 mg/dL (8.6-10.3); EGFR African American 136.9 (>60); EGFR Non-African American 113.2 (>60); Potassium 3.1 mmol/L (3.5-5.0)
[2020-01-30] MEDS: Mometasone/Formoter 200/5 MDI INH SCH ×2 (08:51→23:28)
[2020-01-30 09:09] LABS: ABS Basophils 0.1 10^3/ul (0-0.2); ABS Lymphocytes 0.8 10^3/ul (1.0-4.8); ABS Monocytes 0.9 10^3/ul (0-0.8); Eosinophil % 0.1 %; Hematocrit 38 % (42-52); Hemoglobin 13.8 g/dL (14.0-18.0); Lymphocyte % 7.6 %; Mean Corpuscular HGB Conc 37 g/dL (31-36); Mean Corpuscular Hemoglobin 33 pg (27-31); Mean Corpuscular Volume 90 fL (80-94); Mean Platelet Volume 7.9 fL (7.4-10.4); Platelet Count 171 10^3/uL (150-450); Red Blood Count 4.21 10^6 /uL (4.18-5.48); Red Cell Distribution Width 14 % (10-15); White Blood Count 10.9 10^3/uL (3.5-10.8)
[2020-01-30] MEDS: Insulin GLARGINE 100 un/ml 10 ml VIAL SUBCUT SCH ×2 (09:17→21:59)
[2020-01-30] MEDS: Aspirin EC 81 mg TAB.EC (enteric coated) PO SCH (09:17)
[2020-01-30] MEDS: cefTRIAXone 1 gm/50 mL NS BAG 1 GM/50 ML BAG IVPB SCH (17:25)
[2020-01-31] MEDS: Heparin 5000 UNITS/ML 1 mL VIAL SUBCUT SCH ×3 (05:38→22:22)
[2020-01-31 05:52] LABS: ABS Eosinophils 0.1 10^3/ul (0-0.6); ABS Lymphocytes 1.1 10^3/ul (1.0-4.8); ABS Monocytes 0.7 10^3/ul (0-0.8); ABS Neutrophils 4.3 10^3/ul (1.5-7.7); Eosinophil % 2.1 %; Hematocrit 37 % (42-52); Hemoglobin 13.4 g/dL (14.0-18.0); Lymphocyte % 18.1 %; Mean Corpuscular HGB Conc 36 g/dL (31-36); Mean Corpuscular Hemoglobin 32 pg (27-31); Mean Corpuscular Volume 89 fL (80-94); Mean Platelet Volume 7.3 fL (7.4-10.4); Nucleated Red Blood Cells % 0.1; Platelet Count 182 10^3/uL (150-450); Red Blood Count 4.15 10^6 /uL (4.18-5.48); Red Cell Distribution Width 13 % (10-15); White Blood Count 6.3 10^3/uL (3.5-10.8)
[2020-01-31 06:55] LABS: Albumin 3.3 g/dL (3.2-5.2); Calcium 8.4 mg/dL (8.6-10.3); Indirect Bilirubin 0.9 mg/dL (0.3-1.0); Potassium 3.2 mmol/L (3.5-5.0); Total Bilirubin 1.1 mg/dL (0.2-1.0)
[2020-01-31 07:01] LABS: Albumin/Globulin Ratio 1.1 (1-3); BUN/Creatinine Ratio 10.4 (8-20); EGFR African American 146.4 (>60); Globulin 2.9 g/dL (2-4); Total Protein 6.2 g/dL (6.4-8.9)
[2020-01-31] MEDS: Aspirin EC 81 mg TAB.EC (enteric coated) PO SCH (07:48)
[2020-01-31] MEDS: Mometasone/Formoter 200/5 MDI INH SCH ×2 (08:14→19:54)
[2020-01-31] MEDS ORDERED: Potassium Chlor 10 meq TAB PO ONE (09:00)
[2020-01-31] MEDS: Insulin GLARGINE 100 un/ml 10 ml VIAL SUBCUT SCH ×2 (09:13→22:24)
[2020-01-31] MEDS ORDERED: Pneumococcal Vac 23-Polyvalent IM ONE (12:00)
[2020-01-31] MEDS: cefTRIAXone 1 gm/50 mL NS BAG 1 GM/50 ML BAG IVPB SCH (18:36)
[2020-02-01] MEDS: Heparin 5000 UNITS/ML 1 mL VIAL SUBCUT SCH (06:19)
[2020-02-01] MEDS: Mometasone/Formoter 200/5 MDI INH SCH (08:09)
[2020-02-01 09:03] VITALS: BP 125/75
[2020-02-01] MEDS: Insulin GLARGINE 100 un/ml 10 ml VIAL SUBCUT SCH (09:11)
[2020-02-01] MEDS: Aspirin EC 81 mg TAB.EC (enteric coated) PO SCH (09:11)
== END 2020-02-01 11:10 | disposition home or self-care (01) | DRG 720 ==
LOC: ED 11:28 → MED 19:48
PROVIDERS: ADMIT Hospitalist; ATTEND Hospitalist

== ENCOUNTER 2020-03-22 11:54 | Inpatient (IN) ==
[2020-03-22] MEDS ORDERED: cefTRIAXone 1 gm/50 mL NS BAG 1 GM/50 ML BAG IV ONE (12:18)
[2020-03-22 12:24] LABS: Hematocrit 43 % (42-52); Hemoglobin 15.4 g/dL (14.0-18.0); Mean Corpuscular HGB Conc 36 g/dL (31-36); Mean Corpuscular Hemoglobin 32 pg (27-31); Mean Corpuscular Volume 91 fL (80-94); Mean Platelet Volume 7.7 fL (7.4-10.4); Platelet Count 188 10^3/uL (150-450); Red Blood Count 4.78 10^6 /uL (4.18-5.48); Red Cell Distribution Width 14 % (10-15); White Blood Count 18.4 10^3/uL (3.5-10.8)
[2020-03-22 12:44] LABS: ALT 22 U/L (7-52); AST 28 U/L (13-39); Albumin 4.1 g/dL (3.2-5.2); Albumin/Globulin Ratio 1.1 (1-3); Alkaline Phosphatase 66 U/L (34-104); Anion Gap 11 mmol/L (2-11); BUN/Creatinine Ratio 20.2 (8-20); Blood Urea Nitrogen 17 mg/dL (6-24); C Reactive Protein 337.21 mg/L (<8.01); CO2 Carbon Dioxide 23 mmol/L (22-32); Calcium 9.5 mg/dL (8.6-10.3); Chloride 100 mmol/L (101-111); EGFR African American 112.4 (>60); EGFR Non-African American 92.9 (>60); Globulin 3.7 g/dL (2-4); Glucose 308 mg/dL (70-100); Magnesium 1.9 mg/dL (1.9-2.7); Potassium 3.8 mmol/L (3.5-5.0); Sodium 134 mmol/L (135-145); Total Protein 7.8 g/dL (6.4-8.9)
[2020-03-22] MEDS ORDERED: LACTATED RINGERS IV ONE (13:00)
[2020-03-22 13:08] LABS: Alcohol, S < 10 mg/dL (<10)
[2020-03-22 13:15] LABS: ABS Lymphocytes 0.6 10^3/ul (1.0-4.8); ABS Monocytes 1.9 10^3/ul (0-0.8); ABS Neutrophils 15.9 10^3/ul (1.5-7.7); Lymphocyte % 3.4 %
[2020-03-22 13:37] LABS: Troponin I 0.01 ng/mL (<0.03)
[2020-03-22] MEDS ORDERED: Senna TAB 8.6 mg TAB PO PRN (15:12)
[2020-03-22] MEDS ORDERED: Ondansetron 4 mg VIAL 2 MG/ML 2 ml VIAL IV PRN (15:12)
[2020-03-22 15:14] LABS: Urine Benzodiazepine Screen None Detected (None Detect); Urine Cannabinoids Screen None Detected (None Detect); Urine Opiates Screen None Detected (None Detect)
[2020-03-22] MEDS ORDERED: Dextrose 50% Syringe 50 ml 25 GM/50 ML SYRINGE IV PUSH PRN (15:17)
[2020-03-22] MEDS ORDERED: Iodixanol (CONTRAST) 320 MG/ML 100 ML SDV IV ONE (15:41)
[2020-03-22 16:03] LABS: Urine Appearance Turbid; Urine Bilirubin Negative (Negative); Urine Blood 3+ (Negative); Urine Color Yellow; Urine Glucose 3+(>=500 mg/dL) (Negative); Urine Ketones Negative (Negative); Urine Nitrite Positive (Negative); Urine Protein 2+(100 mg/dL) (Negative); Urine Specific Gravity 1.025 (1.010-1.030); Urine Urobilinogen Positive (Negative)
[2020-03-22 16:05] LABS: Urine Bacteria 1+ (Absent); Urine Red Blood Cell 3+(>10/hpf) (Absent); Urine Red Blood Cell Casts Present (Absent); Urine Squamous Epithelial Cell Present (Absent); Urine White Blood Cell 3+(>20/hpf) (Absent)
[2020-03-22] MEDS ORDERED: Nicotine GUM 4MG FRUIT FLAVOR PO PRN (16:40)
[2020-03-22] MEDS ORDERED: Enalaprilat IV 1.25 mg/ml 2 ml VIAL (2.5 MG) IV ONE (16:45)
[2020-03-22 16:47] LABS: Indirect Bilirubin 2.8 mg/dL (0.3-1.0)
[2020-03-22] MEDS: NS 0.9% 1000 ml BAG 1,000 ML IV SCH (18:11)
[2020-03-22] MEDS ORDERED: NS 0.9% 1000 ml BAG 1,000 ML IV ONE (18:19)
[2020-03-22] MEDS: Mometasone/Formoter 200/5 MDI INH SCH (20:13)
[2020-03-22] MEDS: Heparin 5000 UNITS/ML 1 mL VIAL SUBCUT SCH (22:12)
[2020-03-22] MEDS ORDERED: Lactated Ringers 1000 ml BAG 1,000 ML IV ONE (23:47)
[2020-03-23] MEDS ORDERED: Albuterol/Ipratropium NEB.SOL (2.5/0.5 MG) 3 ML NEB.SOLN INH PRN (03:51)
[2020-03-23] MEDS ORDERED: Albuterol/Ipratropium NEB.SOL (2.5/0.5 MG) 3 ML NEB.SOLN ONE (03:58)
[2020-03-23] MEDS: Heparin 5000 UNITS/ML 1 mL VIAL SUBCUT SCH ×3 (05:26→21:07)
[2020-03-23] MEDS: NS 0.9% 1000 ml BAG 1,000 ML IV SCH (05:47)
[2020-03-23] MEDS: Mometasone/Formoter 200/5 MDI INH SCH ×2 (07:48→20:16)
[2020-03-23] MEDS: Aspirin EC 81 mg TAB.EC (enteric coated) PO SCH (08:32)
[2020-03-23] MEDS: Insulin GLARGINE 100 un/ml 10 ml VIAL SUBCUT SCH (08:33)
[2020-03-23 08:53] LABS: ABS Lymphocytes 0.5 10^3/ul (1.0-4.8); ABS Monocytes 0.5 10^3/ul (0-0.8); Hematocrit 37 % (42-52); Lymphocyte % 6.6 %; Mean Corpuscular HGB Conc 35 g/dL (31-36); Mean Corpuscular Hemoglobin 32 pg (27-31); Mean Corpuscular Volume 91 fL (80-94); Mean Platelet Volume 8.4 fL (7.4-10.4); Platelet Count 144 10^3/uL (150-450); Red Blood Count 4.04 10^6 /uL (4.18-5.48); Red Cell Distribution Width 14 % (10-15)
[2020-03-23 09:14] LABS: Albumin 3.2 g/dL (3.2-5.2); Calcium 8.3 mg/dL (8.6-10.3); EGFR African American 151.1 (>60); EGFR Non-African American 124.9 (>60); Globulin 3.2 g/dL (2-4); Potassium 3.7 mmol/L (3.5-5.0); Total Bilirubin 1.5 mg/dL (0.2-1.0); Total Protein 6.4 g/dL (6.4-8.9)
[2020-03-23] MEDS: cefTRIAXone 1 gm/50 mL NS BAG 1 GM/50 ML BAG IVPB SCH (14:53)
[2020-03-24] MEDS: Heparin 5000 UNITS/ML 1 mL VIAL SUBCUT SCH ×3 (06:10→21:06)
[2020-03-24 06:51] LABS: ABS Lymphocytes 0.4 10^3/ul (1.0-4.8); ABS Monocytes 0.5 10^3/ul (0-0.8); ABS Neutrophils 3.3 10^3/ul (1.5-7.7); Eosinophil % 0.7 %; Hematocrit 38 % (42-52); Hemoglobin 13.3 g/dL (14.0-18.0); Lymphocyte % 8.7 %; Mean Corpuscular HGB Conc 35 g/dL (31-36); Mean Corpuscular Hemoglobin 33 pg (27-31); Mean Corpuscular Volume 92 fL (80-94); Mean Platelet Volume 8.6 fL (7.4-10.4); Platelet Count 124 10^3/uL (150-450); Red Blood Count 4.08 10^6 /uL (4.18-5.48); Red Cell Distribution Width 14 % (10-15); White Blood Count 4.2 10^3/uL (3.5-10.8)
[2020-03-24 07:10] LABS: BUN/Creatinine Ratio 26.2 (8-20); Calcium 8.7 mg/dL (8.6-10.3); EGFR African American 162.6 (>60); EGFR Non-African American 134.4 (>60); Magnesium 2.1 mg/dL (1.9-2.7); Potassium 3.8 mmol/L (3.5-5.0)
[2020-03-24] MEDS: Aspirin EC 81 mg TAB.EC (enteric coated) PO SCH (08:32)
[2020-03-24] MEDS: Insulin GLARGINE 100 un/ml 10 ml VIAL SUBCUT SCH (08:33)
[2020-03-24] MEDS: Mometasone/Formoter 200/5 MDI INH SCH (09:05)
[2020-03-24] MEDS: cefTRIAXone 1 gm/50 mL NS BAG 1 GM/50 ML BAG IVPB SCH (14:55)
[2020-03-25] MEDS: Mometasone/Formoter 200/5 MDI INH SCH ×3 (00:17→19:17)
[2020-03-25] MEDS: Heparin 5000 UNITS/ML 1 mL VIAL SUBCUT SCH ×3 (05:34→20:56)
[2020-03-25 06:35] LABS: Hematocrit 39 % (42-52); Hemoglobin 13.6 g/dL (14.0-18.0); Mean Corpuscular HGB Conc 35 g/dL (31-36); Mean Corpuscular Hemoglobin 32 pg (27-31); Mean Corpuscular Volume 91 fL (80-94); Mean Platelet Volume 8.3 fL (7.4-10.4); Platelet Count 131 10^3/uL (150-450); Red Blood Count 4.22 10^6 /uL (4.18-5.48); Red Cell Distribution Width 14 % (10-15); White Blood Count 3.5 10^3/uL (3.5-10.8)
[2020-03-25 06:56] LABS: BUN/Creatinine Ratio 19.3 (8-20); Calcium 8.7 mg/dL (8.6-10.3); EGFR African American 175.8 (>60); EGFR Non-African American 145.3 (>60); Potassium 3.2 mmol/L (3.5-5.0)
[2020-03-25 08:24] LABS: ABS Lymphocytes 0.7 10^3/ul (1.0-4.8); ABS Monocytes 0.6 10^3/ul (0-0.8); ABS Neutrophils 2.1 10^3/ul (1.5-7.7); Eosinophil % 1.2 %
[2020-03-25] MEDS: Insulin GLARGINE 100 un/ml 10 ml VIAL SUBCUT SCH (09:52)
[2020-03-25] MEDS: Aspirin EC 81 mg TAB.EC (enteric coated) PO SCH (09:52)
[2020-03-25] MEDS: KCL 20 MEQ/100 ML IVPREMIX 20 MEQ/100 ML BAG IV SCH ×3 (10:25→14:31)
[2020-03-25] MEDS: cefTRIAXone 1 gm/50 mL NS BAG 1 GM/50 ML BAG IVPB SCH (14:31)
[2020-03-26] MEDS: Heparin 5000 UNITS/ML 1 mL VIAL SUBCUT SCH ×2 (05:41→13:37)
[2020-03-26] MEDS: Mometasone/Formoter 200/5 MDI INH SCH (08:11)
[2020-03-26 08:28] LABS: BUN/Creatinine Ratio 17.5 (8-20); Calcium 8.9 mg/dL (8.6-10.3); EGFR African American 175.8 (>60); EGFR Non-African American 145.3 (>60); Potassium 3.5 mmol/L (3.5-5.0)
[2020-03-26 08:37] LABS: Hematocrit 39 % (42-52); Mean Corpuscular HGB Conc 36 g/dL (31-36); Mean Corpuscular Hemoglobin 32 pg (27-31); Mean Corpuscular Volume 91 fL (80-94); Mean Platelet Volume 8.4 fL (7.4-10.4); Platelet Count 176 10^3/uL (150-450); Red Blood Count 4.32 10^6 /uL (4.18-5.48); Red Cell Distribution Width 14 % (10-15); White Blood Count 5.7 10^3/uL (3.5-10.8)
[2020-03-26] MEDS: Aspirin EC 81 mg TAB.EC (enteric coated) PO SCH (08:54)
[2020-03-26] MEDS: Insulin GLARGINE 100 un/ml 10 ml VIAL SUBCUT SCH (08:54)
[2020-03-26 09:14] LABS: ABS Basophils 0.1 10^3/ul (0-0.2); ABS Eosinophils 0.2 10^3/ul (0-0.6); ABS Lymphocytes 1.2 10^3/ul (1.0-4.8); ABS Neutrophils 3.4 10^3/ul (1.5-7.7); Eosinophil % 2.9 %; Lymphocyte % 20.4 %
[2020-03-26 16:17] VITALS: BP 132/79
[2020-03-27] MEDS ORDERED: Insulin GLARGINE 100 un/ml 10 ml VIAL SUBCUT SCH (09:00)
== END 2020-03-26 17:00 | disposition home or self-care (01) | DRG 720 ==
LOC: MEDTELE 11:54 → ED 11:54
PROVIDERS: ADMIT Pediatrics; ATTEND Hospitalist

== ENCOUNTER 2020-04-20 05:38 | Inpatient (IN) ==
[2020-04-20] MEDS ORDERED: Ondansetron 4 mg VIAL 2 MG/ML 2 ml VIAL IV ONE ×2 (05:46→08:23)
[2020-04-20] MEDS ORDERED: NS 0.9% 1000 ml BAG 1,000 ML IV ONE ×2 (05:46→14:48)
[2020-04-20 06:21] LABS: ABS Basophils 0.1 10^3/ul (0-0.2); ABS Eosinophils 0.5 10^3/ul (0-0.6); ABS Lymphocytes 1.4 10^3/ul (1.0-4.8); ABS Monocytes 0.8 10^3/ul (0-0.8); ABS Neutrophils 7.3 10^3/ul (1.5-7.7); Eosinophil % 4.6 %; Hematocrit 39 % (42-52); Hemoglobin 14.2 g/dL (14.0-18.0); Lymphocyte % 13.8 %; Mean Corpuscular HGB Conc 36 g/dL (31-36); Mean Corpuscular Hemoglobin 32 pg (27-31); Mean Corpuscular Volume 88 fL (80-94); Mean Platelet Volume 7.2 fL (7.4-10.4); Platelet Count 261 10^3/uL (150-450); Red Blood Count 4.45 10^6 /uL (4.18-5.48); Red Cell Distribution Width 14 % (10-15); White Blood Count 10.1 10^3/uL (3.5-10.8)
[2020-04-20 06:22] LABS: Activated Partial Thrombo Time 29.8 seconds (26.0-38.0); INR 1.02 (0.82-1.09)
[2020-04-20 06:44] LABS: Albumin 4.3 g/dL (3.2-5.2); Albumin/Globulin Ratio 1.1 (1-3); BUN/Creatinine Ratio 17.5 (8-20); C Reactive Protein 21.9 mg/L (<8.01); Calcium 9.5 mg/dL (8.6-10.3); EGFR African American 156.7 (>60); EGFR Non-African American 129.5 (>60); Globulin 3.9 g/dL (2-4); Potassium 4.1 mmol/L (3.5-5.0); Total Bilirubin 1.5 mg/dL (0.2-1.0); Total Protein 8.2 g/dL (6.4-8.9)
[2020-04-20] MEDS ORDERED: Iodixanol (CONTRAST) 320 MG/ML 100 ML SDV IV ONE ×2 (06:46→15:58)
[2020-04-20] MEDS ORDERED: Lidocaine 2% JELLY 10 ML JELLY TOPICAL ONE (08:31)
[2020-04-20] MEDS ORDERED: Lidocaine 2% JELLY 6 ML TOPICAL ONE (10:33)
[2020-04-20 15:18] LABS: ABS Lymphocytes 0.5 10^3/ul (1.0-4.8); ABS Monocytes 0.7 10^3/ul (0-0.8); ABS Neutrophils 10.7 10^3/ul (1.5-7.7); Eosinophil % 0.2 %; Hematocrit 38 % (42-52); Hemoglobin 13.3 g/dL (14.0-18.0); Lymphocyte % 4.1 %; Mean Corpuscular HGB Conc 35 g/dL (31-36); Mean Corpuscular Hemoglobin 31 pg (27-31); Mean Corpuscular Volume 90 fL (80-94); Mean Platelet Volume 7.5 fL (7.4-10.4); Platelet Count 249 10^3/uL (150-450); Red Blood Count 4.25 10^6 /uL (4.18-5.48); Red Cell Distribution Width 14 % (10-15)
[2020-04-20 15:31] LABS: Albumin 4.1 g/dL (3.2-5.2); Albumin/Globulin Ratio 1.4 (1-3); BUN/Creatinine Ratio 15.4 (8-20); Calcium 9.1 mg/dL (8.6-10.3); EGFR African American 151.1 (>60); EGFR Non-African American 124.9 (>60); Magnesium 1.7 mg/dL (1.9-2.7); Potassium 4.1 mmol/L (3.5-5.0); Total Bilirubin 2.2 mg/dL (0.2-1.0); Total Protein 7.1 g/dL (6.4-8.9); Troponin I 0.01 ng/mL (<0.03)
[2020-04-20] MEDS ORDERED: NS 0.9% 1000 ml BAG 1,000 ML IV SCH (16:45)
[2020-04-20] MEDS ORDERED: cefTRIAXone 1 gm/50 mL NS BAG 1 GM/50 ML BAG IV ONE (16:45)
[2020-04-20] MEDS ORDERED: NS 0.9% IV ONE (16:45)
[2020-04-20] MEDS ORDERED: Albuterol HFA INHALER 8 gm MDI INH PRN (17:48)
[2020-04-20] MEDS ORDERED: Dextrose 50% Syringe 50 ml 25 GM/50 ML SYRINGE IV PUSH PRN (17:49)
[2020-04-20] MEDS ORDERED: Magnesium Sulfate 2 gm BAG 2 GM/50 ML BAG IVPB ONE (18:41)
[2020-04-20] MEDS ORDERED: Cefepime ADVAN 1 GM in NS 0.9% 50 ML 50 ML IVPB SCH (19:00)
[2020-04-20] MEDS: NS 0.9% 1000 ml BAG 1,000 ML IV SCH (20:04)
[2020-04-20] MEDS: Mometasone/Formoter 200/5 MDI INH SCH (20:21)
[2020-04-20] MEDS: Cefepime 1 GM in Dextrose 1 GM/50 ML BAG IV SCH (21:20)
[2020-04-20] MEDS: Insulin GLARGINE 100 un/ml 10 ml VIAL SUBCUT SCH (21:20)
[2020-04-21] MEDS: NS 0.9% 1000 ml BAG 1,000 ML IV SCH ×3 (03:17→19:12)
[2020-04-21 06:27] LABS: ABS Basophils 0.1 10^3/ul (0-0.2); ABS Eosinophils 0.1 10^3/ul (0-0.6); ABS Lymphocytes 0.8 10^3/ul (1.0-4.8); ABS Monocytes 0.6 10^3/ul (0-0.8); ABS Neutrophils 4.5 10^3/ul (1.5-7.7); Eosinophil % 1.1 %; Hematocrit 30 % (42-52); Hemoglobin 10.8 g/dL (14.0-18.0); Lymphocyte % 13.6 %; Mean Corpuscular HGB Conc 36 g/dL (31-36); Mean Corpuscular Hemoglobin 32 pg (27-31); Mean Corpuscular Volume 89 fL (80-94); Mean Platelet Volume 7.3 fL (7.4-10.4); Nucleated Red Blood Cells % 0.1; Platelet Count 187 10^3/uL (150-450); Red Blood Count 3.39 10^6 /uL (4.18-5.48); Red Cell Distribution Width 14 % (10-15)
[2020-04-21] MEDS ORDERED: NS 0.9% 500 ml BAG 500 ML IV ONE (06:51)
[2020-04-21 07:02] LABS: Albumin 3.2 g/dL (3.2-5.2); Albumin/Globulin Ratio 1.1 (1-3); BUN/Creatinine Ratio 10.7 (8-20); EGFR African American 179.5 (>60); EGFR Non-African American 148.3 (>60); Globulin 2.8 g/dL (2-4); Potassium 3.4 mmol/L (3.5-5.0); Total Bilirubin 1.6 mg/dL (0.2-1.0)
[2020-04-21] MEDS: Aspirin EC 81 mg TAB.EC (enteric coated) PO SCH (07:56)
[2020-04-21] MEDS: Cefepime 1 GM in Dextrose 1 GM/50 ML BAG IV SCH ×2 (07:56→22:09)
[2020-04-21] MEDS: Insulin GLARGINE 100 un/ml 10 ml VIAL SUBCUT SCH ×2 (07:58→23:04)
[2020-04-21] MEDS: Mometasone/Formoter 200/5 MDI INH SCH ×2 (08:04→19:16)
[2020-04-21 09:50] LABS: Urine Appearance Cloudy; Urine Bilirubin Negative (Negative); Urine Blood 3+ (Negative); Urine Color Yellow; Urine Glucose Negative (Negative); Urine Ketones Negative (Negative); Urine Nitrite Negative (Negative); Urine Protein 1+(30 mg/dL) (Negative); Urine Specific Gravity 1.009 (1.010-1.030); Urine Urobilinogen Negative (Negative)
[2020-04-21 10:02] LABS: Urine Bacteria 1+ (Absent); Urine Red Blood Cell 3+(>10/hpf) (Absent); Urine White Blood Cell 3+(>20/hpf) (Absent)
[2020-04-21] MEDS ORDERED: cefTRIAXone 1 gm/50 mL NS BAG 1 GM/50 ML BAG IVPB SCH (17:00)
[2020-04-22] MEDS: NS 0.9% 1000 ml BAG 1,000 ML IV SCH (03:03)
[2020-04-22 05:50] LABS: ABS Basophils 0.1 10^3/ul (0-0.2); ABS Eosinophils 0.2 10^3/ul (0-0.6); ABS Lymphocytes 1.2 10^3/ul (1.0-4.8); ABS Monocytes 0.6 10^3/ul (0-0.8); ABS Neutrophils 3.4 10^3/ul (1.5-7.7); Eosinophil % 4.4 %; Hematocrit 31 % (42-52); Hemoglobin 11.1 g/dL (14.0-18.0); Lymphocyte % 21.8 %; Mean Corpuscular HGB Conc 36 g/dL (31-36); Mean Corpuscular Hemoglobin 32 pg (27-31); Mean Corpuscular Volume 89 fL (80-94); Mean Platelet Volume 7.2 fL (7.4-10.4); Platelet Count 199 10^3/uL (150-450); Red Blood Count 3.45 10^6 /uL (4.18-5.48); Red Cell Distribution Width 14 % (10-15); White Blood Count 5.5 10^3/uL (3.5-10.8)
[2020-04-22 06:02] LABS: BUN/Creatinine Ratio 10.7 (8-20); Calcium 8.3 mg/dL (8.6-10.3); EGFR African American 179.5 (>60); EGFR Non-African American 148.3 (>60); Magnesium 1.9 mg/dL (1.9-2.7); Potassium 3.7 mmol/L (3.5-5.0)
[2020-04-22] MEDS: Mometasone/Formoter 200/5 MDI INH SCH ×2 (07:33→19:54)
[2020-04-22] MEDS: Cefepime 1 GM in Dextrose 1 GM/50 ML BAG IV SCH ×2 (08:09→19:50)
[2020-04-22] MEDS: Aspirin EC 81 mg TAB.EC (enteric coated) PO SCH (08:11)
[2020-04-22] MEDS: Insulin GLARGINE 100 un/ml 10 ml VIAL SUBCUT SCH ×2 (08:13→19:53)
[2020-04-22] MEDS ORDERED: Iodixanol (CONTRAST) 320 MG/ML 100 ML SDV IV ONE (10:26)
[2020-04-23] MEDS: Aspirin EC 81 mg TAB.EC (enteric coated) PO SCH (07:45)
[2020-04-23] MEDS: Cefepime 1 GM in Dextrose 1 GM/50 ML BAG IV SCH (07:46)
[2020-04-23] MEDS: Insulin GLARGINE 100 un/ml 10 ml VIAL SUBCUT SCH (07:57)
[2020-04-23] MEDS: Mometasone/Formoter 200/5 MDI INH SCH (08:53)
[2020-04-23 11:57] VITALS: BP 133/82
== END 2020-04-23 13:15 | disposition home or self-care (01) | DRG 466 ==
LOC: ED 05:38 → MEDTELE 16:40 → UNDODISIN 04-23 11:55
PROVIDERS: ADMIT Internal Medicine; ATTEND Internal Medicine